=== PATIENT | female | born 1955 | race Caucasian/White ===

== ENCOUNTER 2016-12-03 15:46 | Inpatient (IN) | payer MEDICARE ==
[2016-12-03 16:40] LABS: VENOUS BEb -3.5 (+/- 2); VENOUS TCO2 23.4 MMOL/L (23-27)
[2016-12-03 16:45] LABS: AUTOMATED BASOPHIL 0.3 % (0-2); AUTOMATED EOSINOPHIL 0.1 % (0-5); AUTOMATED MONOCYTE 10.9 % (3-10); AUTOMATED NEUTROPHIL 78.7 % (45-76); MPV 8.7 fL (7.4-10.4)
[2016-12-03 16:51] LABS: PT-INR 1.1
[2016-12-03 16:53] LABS: BLOOD UREA NITROGEN 23 MG/DL (7-17); CALCIUM 8.5 MG/DL (8.4-10.2); CALCULATED OSMOLALITY 251 MOs/Kg (270-290); CHLORIDE 94 mEq/L (98-107); GLUCOSE 96 MG/DL (70-99); SODIUM LEVEL 128 mEq/L (137-146)
[2016-12-03] MEDS ORDERED: NS 1,000 ML IV ONE ×4 (17:07→23:04)
--- NOTE | 2016-12-03 17:12 | EDPRACDOC ---
- General Information Chief Complaint: Dyspnea/Resp distress Stated Complaint: SHOB/CHEST PAIN Time Seen by Provider: 12/03/16 17:10 Information Source: Patient Mode Of Arrival: Car Home Medications: Home Medications Acetaminophen [Tylenol] 975 mg PO DAILY 12/03/16 Alprazolam [Xanax] 0.5 mg PO TID 12/03/16 Amitriptyline HCl 50 mg PO DAILY 12/03/16 Aspirin 325 mg PO DAILY 12/03/16 Baclofen 20 mg PO Q8H 12/03/16 Doxycycline Hyclate [Morgidox] 100 mg PO .BID X 7D 12/03/16 Fentanyl [Duragesic] 75 mcg TOP Q48H 12/03/16 Fluorometholone [Fml Forte] 1 drop OU BID 12/03/16 Fluoxetine HCl [Prozac] 20 mg PO QHS 12/03/16 Gabapentin 800 mg PO Q6H 12/03/16 Levothyroxine [Synthroid, Levoxyl] 100 mcg PO DAILY 12/03/16 Meloxicam [Mobic] 7.5 mg PO DAILY 12/03/16 Mirtazapine [Remeron] 45 mg PO HS 12/03/16 Nebivolol HCl [Bystolic] 2.5 mg PO DAILY 12/03/16 Prednisone [Sterapred Ds] 10 mg PO DIR 12/03/16 Roflumilast [Daliresp] 500 mcg PO DAILY 12/03/16 Solifenacin Succinate [Vesicare] 5 mg PO DAILY 12/03/16 Trimethoprim 100 mg PO HS 12/03/16 Allergies/Adverse Reactions: Allergies Allergy/AdvReac Type Severity Reaction Status Date / Time oxycodone [From OxyContin] Allergy Confusion Verified 12/03/16 15:59 - History of Present Illness HPI: Cough, fever to 101 today with SOB, had outpatient CXR showing R sided PNA, sent to the ED. Relevant History: Denies: Recent travel Cough: Reports: Non-productive. Denies: Bloody SOB Worsens with: Reports: Nothing SOB Improves with: Reports: Nothing Associated Signs and symptoms: Reports: Cough, Fever. Denies: Sore Throat, Vomiting ED Past Medical History - History Reviewed Yes Nurses notes reviewed and agree except as marked - Patient Medical History Cardiac History: Reports: Hypertension Psychological History: Denies: Depression - Social Medical History Smoking Status: Former smoker EDM Review of Systems - Review of Systems ROS Negative Except as Marked: Yes All systems reviewed and were negative except as marked - Physical Exam Constitutional: Alert (Awake), Other (dyspneic) Oriented to: Time, Person, Place Last recorded Vital Signs: Last Vital Signs Temp 98.4 F 12/03/16 16:30 Pulse 122 H 12/03/16 16:30 Resp 22 12/03/16 16:30 BP 114/67 12/03/16 16:30 Pulse Ox 90 L 12/03/16 16:30 Oxygen Pulse Oxygen Saturation 90 O2 Device Room Air Oxygen Flow Rate Fraction of Inspired Oxygen ( FIO2) - HEENT Head: Normal ( normocephalic) Eye Exam: Normal (PERRL, EOMI, Sclera white) Oropharynx: Membranes Dry Tympanic Membrane: Normal ENT EAC: Normal TMJ: Normal Neck: Normal (FROM, trachea at midline) - Respiratory/Cardiovascular Respiratory: Diminished Cardiovascular: Tachycardia - GI Auscultation: Normal (NABS) Palpation: Normal (Soft,No rebound or guarding, non distended) Tenderness: Non tender Moore's Sign: Negative - Musculoskeletal Extremities: Normal (Normal tone, Pulses 2+ No cyanosis or edema, FROM) - Integumentary Skin: Normal, Warm, Dry Lymphatics: Normal (no adenopathy) - Neurologic Memory Impaired: Normal Motor Function: Normal (Normal tone, Pulses 2+ No cyanosis or edema, FROM) Cranial Nerve: Normal (CN II-X11 intact sensation, strength 5/5) Cerebellar: Normal Mood Description: Normal Perception: Normal ED SOB MDM - Results Result Diagrams: 12/03/16 16:26 12/03/16 16:26 Results: WBC 3.7 xk/uL (3.8-10.8) L 12/03/16 16:26 RBC 3.59 xM/uL (4.20-5.40) L 12/03/16 16:26 Hgb 12.4 g/dL (12.0-16.0) 12/03/16 16:26 Hct 35.5 % (36-47) L 12/03/16 16:26 MCV 99 fL (81-99) 12/03/16 16:26 MCH 34.5 pg (27-32) H 12/03/16 16:26 MCHC 34.9 g/dl (33-36) 12/03/16 16:26 RDW 12.0 % (11.5-14.5) 12/03/16 16:26 Plt Count 154 xk/uL (130-400) 12/03/16 16:26 MPV 8.7 fL (7.4-10.4) 12/03/16 16:26 Neut % (Auto) 78.7 % (45-76) H 12/03/16 16:26 Lymph % (Auto) 10.0 % (17-44) L 12/03/16 16:26 [place] % (Auto) 10.9 % (3-10) H 12/03/16 16:26 Eos % (Auto) 0.1 % (0-5) 12/03/16 16:26 Baso % (Auto) 0.3 % (0-2) 12/03/16 16:26 Absolute Neuts (auto) 2.89 xk/uL (1.7-8.2) 12/03/16 16:26 Absolute Lymphs (auto) 0.37 xk/uL (0.65-4.75) L 12/03/16 16:26 PT 11.4 SEC (9.2-11.2) H 12/03/16 16:26 INR 1.1 12/03/16 16:26 VBG pH 7.34 pH UNITS (7.32-7.43) 12/03/16 16:26 Mixed VBG pCO2 41.0 mmHg (40-60) 12/03/16 16:26 Mixed VBG pO2 43.0 mmHg (30-55) 12/03/16 16:26 Mixed VBG HCO3 22.1 MMOL/L (22-27) 12/03/16 16:26 Mixed VBG Total CO2 23.4 MMOL/L (23-27) 12/03/16 16:26 Mixed VBG Base Excess -3.5 (+/- 2) L 12/03/16 16:26 Sodium 128 mEq/L (137-146) L 12/03/16 16:26 Potassium 3.0 mEq/L (3.5-5.1) L 12/03/16 16:26 Chloride 94 mEq/L (98-107) L 12/03/16 16:26 Carbon Dioxide 20 mMOL/L (22-33) L 12/03/16 16:26 Anion Gap 17 mEq/L (8-16) H 12/03/16 16:26 BUN 23 MG/DL (7-17) H 12/03/16 16:26 Creatinine 0.80 MG/DL (0.52-1.04) 12/03/16 16:26 Estimated GFR (MDRD) > 60 mL/min (>=60) 12/03/16 16:26 Glucose 96 MG/DL (70-99) 12/03/16 16:26 Calculated Osmolality 251 MOs/Kg (270-290) L 12/03/16 16:26 Lactic Acid 6.0 mEq/L (0.7-2.1) H* 12/03/16 16:26 Calcium 8.5 MG/DL (8.4-10.2) 12/03/16 16:26 Lab Results 12/03/16 12/03/16 12/03/16 16:26 16:26 16:26 WBC 3.7 L RBC 3.59 L Hgb 12.4 Hct 35.5 L MCV 99 MCH 34.5 H MCHC 34.9 RDW 12.0 Plt Count 154 MPV 8.7 Neut % (Auto) 78.7 H Lymph % (Auto) 10.0 L [place] % (Auto) 10.9 H Eos % (Auto) 0.1 Baso % (Auto) 0.3 Absolute Neuts (auto) 2.89 Absolute Lymphs (auto) 0.37 L PT 11.4 H INR 1.1 VBG pH 7.34 Mixed VBG pCO2 41.0 Mixed VBG pO2 43.0 Mixed VBG HCO3 22.1 Mixed VBG Total CO2 23.4 Mixed VBG Base Excess -3.5 L Sodium Potassium Chloride Carbon Dioxide Anion Gap BUN Creatinine Estimated GFR (MDRD) Glucose Calculated Osmolality Lactic Acid Calcium 12/03/16 12/03/16 16:26 16:26 WBC RBC Hgb Hct MCV MCH MCHC RDW Plt Count MPV Neut % (Auto) Lymph % (Auto) [place] % (Auto) Eos % (Auto) Baso % (Auto) Absolute Neuts (auto) Absolute Lymphs (auto) PT INR VBG pH Mixed VBG pCO2 Mixed VBG pO2 Mixed VBG HCO3 Mixed VBG Total CO2 Mixed VBG Base Excess Sodium 128 L Potassium 3.0 L Chloride 94 L Carbon Dioxide 20 L Anion Gap 17 H BUN 23 H Creatinine 0.80 Estimated GFR (MDRD) > 60 Glucose 96 Calculated Osmolality 251 L Lactic Acid 6.0 H* Calcium 8.5 - Departure Final Diagnosis: Pneumonia Referrals: Erika Malik MD [Primary Care Provider] - One Week Prescriptions: No Action Roflumilast [Daliresp] 500 mcg PO DAILY Gabapentin 800 mg PO Q6H Aspirin 325 mg PO DAILY Meloxicam [Mobic] 7.5 mg PO DAILY Baclofen 20 mg PO Q8H Levothyroxine [Synthroid, Levoxyl] 100 mcg PO DAILY Amitriptyline HCl 50 mg PO DAILY Solifenacin Succinate [Vesicare] 5 mg PO DAILY Nebivolol HCl [Bystolic] 2.5 mg PO DAILY Fluoxetine HCl [Prozac] 20 mg PO QHS Fluorometholone [Fml Forte] 1 drop OU BID Mirtazapine [Remeron] 45 mg PO HS Fentanyl [Duragesic] 75 mcg TOP Q48H Alprazolam [Xanax] 0.5 mg PO TID Trimethoprim 100 mg PO HS Prednisone [Sterapred Ds] 10 mg PO DIR Doxycycline Hyclate [Morgidox] 100 mg PO .BID X 7D Acetaminophen [Tylenol] 975 mg PO DAILY Decision to Admit Time: 18:13 (d/w Dr Lewis, will admit) Decision to admit date: 12/03/16 Decision to admit: from ED
[2016-12-03 17:15] LABS: LEUKOCYTES/URINE NEG (NEGATIVE); NITRITE/URINE NEG (NEGATIVE); RBC/URINE 0-2 (0-5); URINE OCCULT BLOOD NEG (NEG/TRACE); WBC/URINE 0-2 (0-5)
[2016-12-03] MEDS: NS 1,000 ML IV ONE ×2 (17:25→17:53)
[2016-12-03] MEDS ORDERED: POTASSIUM CHLORIDE 20 MEQ TAB PO ONE (17:45)
[2016-12-03] MEDS ORDERED: ONDANSETRON HCL 4 MG/2 ML VIAL IV ONE ×2 (17:46→18:29)
[2016-12-03] MEDS ORDERED: FENTANYL 100 MCG/2 ML VIAL IV ONE (17:46)
[2016-12-03] MEDS ORDERED: Levofloxacin 750 mg/150 ml D5W 750 MG/150 ML RTU IV ONE (18:00)
--- NOTE | 2016-12-03 18:43 | HISTPHYS ---
- Chief Complaint shortness of breath - History of Present Illness PRIMARY CARE PROVIDER: Dr. Erika Malik HPI: The patient is a 61 yo woman who presents with acute shortness of breath and right sided chest pain. It started this morning with shortness of breath and the chest pain. She went to her doctor's office and was evaluated, then sent to have a chest x-ray. Chest x-ray done as an outpatient at [facility] showed a right sided pneumonia, so patient presented to the emergency department. Onset: this morning. Duration: constant. Location: chest pain is on right side of chest. Radiation: to back on right side of thorax. Character: 10/10 at times. As if someone is pressing on her chest. Alleviated by : Nothing. Exacerbated by: taking a deep breath and exertion. Associated Symptoms: Coughing that is non-productive. Not sure if she had wheezing. Shortness of breath, worsening. Chest pain but no palpitations. Fever at home. Not sure if she had chills. Diaphoresis today. Severe fatigue. Headache that is all over her head (reports she gets headaches when she has a respiratory infection). Does not feel well. Nausea. Has chronic back pain but pain is currently worse; is in right thorax and lower spine. Treatments: none at home except usual medications. - Medical History Cardiac History: Reports: Hypertension Respiratory History: Reports: COPD (rarely uses inhalers. Not on O2 at home.) GI/ History: Reports: Urinary Tract Infection (recurrent UTIs, on trimethoprim for prevention) Musculoskeletal History: Reports: Arthritis (and chronic back pain.) Psychological History: Denies: Depression Patient report she has had pain in area where the spinal stimulator was, and that she has episodes of pneumonia on right because of the stimulator surgery, which she states caused a pocket of exudate on the right lung. - Surgical History Reports: Other (Had a stimulator in spine for pain, was removed.) - Medictions/Allergies Allergies oxycodone [From OxyContin] Allergy (Verified 12/03/16 15:59) Confusion Current Medication List: Reviewed Home Medications Acetaminophen [Tylenol] 975 mg PO DAILY 12/03/16 Alprazolam [Xanax] 0.5 mg PO TID 12/03/16 Amitriptyline HCl 50 mg PO DAILY 12/03/16 Aspirin 325 mg PO DAILY 12/03/16 Baclofen 20 mg PO Q8H 12/03/16 Doxycycline Hyclate [Morgidox] 100 mg PO .BID X 7D 12/03/16 Fentanyl [Duragesic] 75 mcg TOP Q48H 12/03/16 Fluorometholone [Fml Forte] 1 drop OU BID 12/03/16 Fluoxetine HCl [Prozac] 20 mg PO QHS 12/03/16 Gabapentin 800 mg PO Q6H 12/03/16 Levothyroxine [Synthroid, Levoxyl] 100 mcg PO DAILY 12/03/16 Meloxicam [Mobic] 7.5 mg PO DAILY 12/03/16 Mirtazapine [Remeron] 45 mg PO HS 12/03/16 Nebivolol HCl [Bystolic] 2.5 mg PO DAILY 12/03/16 Prednisone [Sterapred Ds] 10 mg PO DIR 12/03/16 Roflumilast [Daliresp] 500 mcg PO DAILY 12/03/16 Solifenacin Succinate [Vesicare] 5 mg PO DAILY 12/03/16 Trimethoprim 100 mg PO HS 12/03/16 - Family History Reports: Hypertension (Father), Cancer (Mother), Cardiac Disorders (Father) - Social History Smoking Status: Former smoker Social History: Reports: Alcohol Use. Denies: Substance Use Disorder Regarding alcohol: Patient reports she drinks alcohol but not daily. She usually drinks gin that she pours in orange juice. She reports she drinks usually just one per day when she does drink. - Review of Systems GENERAL: Fever at home. Not sure if she had chills. Diaphoresis today. Positive for fatigue/malaise. HEENT: No ear pain or discharge. No nasal discharge or bleeding. No throat pain or swelling. No eye pain or eye redness. RESPIRATORY: Coughing that is non-productive. Not sure if she had wheezing. Shortness of breath, worsening. CARDIOVASCULAR: Chest pain but no palpitations. GI: Nausea. No abdominal pain, vomiting, diarrhea, constipation, or bloody stool. NEUROLOGICAL: Has headache but no focal weakness. INTEGUMENT: no rashes, itching, or lesions. LYMPHATIC SYSTEM: no lymph node swelling or pain. MUSCULOSKELETAL: Worsening back pain; otherwise, no new pain or joint swelling. GENITOURINARY: No dysuria or hematuria. ENDOCRINE: No polyuria or polydipsia. HEME: No chronic anemia, bleeding. Positive for easy bruising. - Physical Exam Vital Signs: Initial Vitals Temperature 98.6 F 12/03/16 15:54 Pulse Rate 127 H 12/03/16 15:54 Respiratory Rate 18 12/03/16 15:54 Blood Pressure 97/65 L 12/03/16 15:54 Pulse Oxygen Saturation 87 L 12/03/16 15:54 Weight: 59.3 kg Height: 5'5" BMI: 21.8 - Other Exam Other Exam Findings: GENERAL: Ill-appearing, well nourished, in acute distress. HEENT: Normocephalic, atraumatic; pupils equal and round. Nares patent, without discharge or bleeding. No oropharyngeal lesions or erythema. Mucous membranes are dry. NECK: is supple, no masses, trachea midline. RESPIRATORY: Clear to auscultation bilaterally. Chest wall movements are symmetric. Tachypnea and use of accessory muscles to breathe. Rhonchi on right. Decreased breath sounds bilaterally. CARDIOVASCULAR: Normal S1, S2. Murmur 2/6, systolic flow murmur. No rubs, or gallops. PMI non-displaced. Carotids: no carotid bruits. Tachycardia. DP pulses 2+ bilaterally. Cap refill slightly delayed at 4 seconds. GI: soft, nontender, non-distended, hypoactive bowel sounds. No hepatosplenomegaly. INTEGUMENT: Clean, dry, and intact. No rashes. No lesions. MUSCULOSKELETAL: Moving all extremities. No cyanosis. No clubbing. Edema: none bilaterally. NEUROLOGICAL: Cranial nerves 2-12 grossly intact. Motor 5/5 throughout. Reflexes : 2+ bilaterally. Babinski: toes downgoing bilaterally. Intact Finger to nose. Sensory grossly intact to light touch. Intact rapid alternating movements bilaterally. No pronator drift. PSYCHIATRIC: Fully oriented. Normal and appropriate affect. LYMPHATIC: Shotty cervical lymphadenopathy. No supraclavicular lymphadenopathy. - Lab Results Laboratory Results - last 24 hr 12/03/16 12/03/16 12/03/16 16:26 16:26 16:26 WBC 3.7 L RBC 3.59 L Hgb 12.4 Hct 35.5 L MCV 99 MCH 34.5 H MCHC 34.9 RDW 12.0 Plt Count 154 MPV 8.7 Neut % (Auto) 78.7 H Lymph % (Auto) 10.0 L [place] % (Auto) 10.9 H Eos % (Auto) 0.1 Baso % (Auto) 0.3 Absolute Neuts (auto) 2.89 Absolute Lymphs (auto) 0.37 L PT INR D-Dimer Quant (PE/DVT) Puncture Site pH pCO2 pO2 HCO3 Total CO2 Base Excess VBG pH Mixed VBG pCO2 Mixed VBG pO2 Mixed VBG HCO3 Mixed VBG Total CO2 Mixed VBG Base Excess FiO2 % Specimen Drawn By Sodium 128 L Potassium 3.0 L Chloride 94 L Carbon Dioxide 20 L Anion Gap 17 H BUN 23 H Creatinine 0.80 Estimated GFR (MDRD) > 60 Glucose 96 Calculated Osmolality 251 L Lactic Acid 6.0 H* Calcium 8.5 Magnesium Urine Color Urine Clarity Urine pH Ur Specific [place] Urine Protein Urine Glucose (UA) Urine Ketones Urine Occult Blood Urine Nitrite Urine Bilirubin Urine Urobilinogen Ur Leukocyte Esterase Urine RBC Urine WBC Ur Epithelial Cells Urine Bacteria Hyaline Casts Urine Mucus Urine Opiates Screen Ur Oxycodone Screen Urine Methadone Screen Ur Barbiturates Screen Ur Tricyclics Screen Ur Phencyclidine Scrn Ur Amphetamines Screen U Methamphetamines Scrn Urine MDMA Screen U Benzodiazepines Scrn Urine Cocaine Screen Ur THC Screen Plasma/Serum Ethyl Alc 12/03/16 12/03/16 12/03/16 16:26 16:26 16:26 WBC RBC Hgb Hct MCV MCH MCHC RDW Plt Count MPV Neut % (Auto) Lymph % (Auto) [place] % (Auto) Eos % (Auto) Baso % (Auto) Absolute Neuts (auto) Absolute Lymphs (auto) PT 11.4 H INR 1.1 D-Dimer Quant (PE/DVT) Puncture Site pH pCO2 pO2 HCO3 Total CO2 Base Excess VBG pH 7.34 Mixed VBG pCO2 41.0 Mixed VBG pO2 43.0 Mixed VBG HCO3 22.1 Mixed VBG Total CO2 23.4 Mixed VBG Base Excess -3.5 L FiO2 % Specimen Drawn By Sodium Potassium Chloride Carbon Dioxide Anion Gap BUN Creatinine Estimated GFR (MDRD) Glucose Calculated Osmolality Lactic Acid Calcium Magnesium Urine Color Urine Clarity Urine pH Ur Specific [place] Urine Protein Urine Glucose (UA) Urine Ketones Urine Occult Blood Urine Nitrite Urine Bilirubin Urine Urobilinogen Ur Leukocyte Esterase Urine RBC Urine WBC Ur Epithelial Cells Urine Bacteria Hyaline Casts Urine Mucus Urine Opiates Screen Ur Oxycodone Screen Urine Methadone Screen Ur Barbiturates Screen Ur Tricyclics Screen Ur Phencyclidine Scrn Ur Amphetamines Screen U Methamphetamines Scrn Urine MDMA Screen U Benzodiazepines Scrn Urine Cocaine Screen Ur THC Screen Plasma/Serum Ethyl Alc 12/03/16 12/03/16 12/03/16 16:50 16:50 20:55 WBC RBC Hgb Hct MCV MCH MCHC RDW Plt Count MPV Neut % (Auto) Lymph % (Auto) [place] % (Auto) Eos % (Auto) Baso % (Auto) Absolute Neuts (auto) Absolute Lymphs (auto) PT INR D-Dimer Quant (PE/DVT) Puncture Site pH pCO2 pO2 HCO3 Total CO2 Base Excess VBG pH Mixed VBG pCO2 Mixed VBG pO2 Mixed VBG HCO3 Mixed VBG Total CO2 Mixed VBG Base Excess FiO2 % Specimen Drawn By Sodium Potassium Chloride Carbon Dioxide Anion Gap BUN Creatinine Estimated GFR (MDRD) Glucose Calculated Osmolality Lactic Acid 3.0 H Calcium Magnesium Urine Color Pale yellow Urine Clarity Clear Urine pH 5.0 Ur Specific [place] 1.010 Urine Protein Neg Urine Glucose (UA) 3+ H Urine Ketones Neg Urine Occult Blood Neg Urine Nitrite Neg Urine Bilirubin Neg Urine Urobilinogen <2.0 Ur Leukocyte Esterase Neg Urine RBC 0-2 Urine WBC 0-2 Ur Epithelial Cells Occ Urine Bacteria Few Hyaline Casts 5-10 H Urine Mucus Occ Urine Opiates Screen Neg Ur Oxycodone Screen Neg Urine Methadone Screen Neg Ur Barbiturates Screen Neg Ur Tricyclics Screen *positive* H Ur Phencyclidine Scrn Neg Ur Amphetamines Screen Neg U Methamphetamines Scrn Neg Urine MDMA Screen Neg U Benzodiazepines Scrn *positive* H Urine Cocaine Screen Neg Ur THC Screen Neg Plasma/Serum Ethyl Alc 12/03/16 12/03/16 12/03/16 20:55 21:23 23:10 WBC RBC Hgb Hct MCV MCH MCHC RDW Plt Count MPV Neut % (Auto) Lymph % (Auto) [place] % (Auto) Eos % (Auto) Baso % (Auto) Absolute Neuts (auto) Absolute Lymphs (auto) PT INR D-Dimer Quant (PE/DVT) 646 H Puncture Site Right radial pH 7.440 pCO2 30.0 L pO2 49.0 L* HCO3 20.4 L Total CO2 21.3 L Base Excess -2.7 L VBG pH Mixed VBG pCO2 Mixed VBG pO2 Mixed VBG HCO3 Mixed VBG Total CO2 Mixed VBG Base Excess FiO2 % 3L Specimen Drawn By Rakma Sodium 135 L Potassium Chloride Carbon Dioxide Anion Gap BUN Creatinine Estimated GFR (MDRD) Glucose Calculated Osmolality Lactic Acid Calcium Magnesium 1.00 L Urine Color Urine Clarity Urine pH Ur Specific [place] Urine Protein Urine Glucose (UA) Urine Ketones Urine Occult Blood Urine Nitrite Urine Bilirubin Urine Urobilinogen Ur Leukocyte Esterase Urine RBC Urine WBC Ur Epithelial Cells Urine Bacteria Hyaline Casts Urine Mucus Urine Opiates Screen Ur Oxycodone Screen Urine Methadone Screen Ur Barbiturates Screen Ur Tricyclics Screen Ur Phencyclidine Scrn Ur Amphetamines Screen U Methamphetamines Scrn Urine MDMA Screen U Benzodiazepines Scrn Urine Cocaine Screen Ur THC Screen Plasma/Serum Ethyl Alc - Diagnostic Findings DIAGNOSTIC DATA: EK bpm. Sinus tachycardia. Nonspecific T wave abnormality. Minimal ST depression in 2, aVF, V3, and V4. Reviewed EKG personally. IMAGING: Chest x-ray, viewed personally: CLINICAL DATA: Productive cough and chest pain when coughing for several days. History of pneumonia and COPD. Fever today. EXAM: CHEST 2 VIEW COMPARISON: Radiographs 10/10/2015 and 04/16/2011. FINDINGS: The heart size and mediastinal contours are stable. There are diffuse airspace opacities throughout the right lung with associated fissural thickening. The left lung is clear. There is no significant pleural effusion. The bones appear unremarkable. IMPRESSION: Multifocal airspace opacities throughout the right lung suspicious for multi lobar pneumonia. Followup PA and lateral chest X-ray is recommended in 3-4 weeks following trial of antibiotic therapy to ensure resolution and exclude underlying malignancy. These results will be called to the ordering clinician or sales representative aircraft by the Radiology Department at the imaging location. - Assessment (1) Sepsis A41.9 - SEPSIS, UNSPECIFIED ORGANISM Acute Present on Admission: Yes Present on admission. Criteria: Pulse 126. White blood cells 3.7. Respiratory rate 24. Fever at home of 101. Lactic acid level is 6. Source: pneumonia. Plan: Sepsis order set. IV antibiotics. IV fluids to provide volume. Monitor for signs of volume depletion, monitor blood pressure carefully. If still hypotensive with IV fluids consider pressors. Close monitoring. Telemetry. IVF: initial IVF 30 mL/kg x 1, then 250 mL/hr x 1 L, then maintenance IVF. (2) Acute respiratory failure with hypoxia J96.01 - ACUTE RESPIRATORY FAILURE WITH HYPOXIA Acute Present on Admission: Yes Patient has dyspnea and is not improving. Obtained ABG on 3L and patient's PO2 is low. Plan: Place patient on oxygen by Venti Mask 50% and increase as needed. Monitor oxygen saturation levels and keep O2 sats greater than 92%. Check D-dimer and if elevated, consider CTA chest. (3) Bacterial pneumonia J15.9 - UNSPECIFIED BACTERIAL PNEUMONIA Acute Present on Admission: Yes Pneumonia. Severe. Requiring continuous oxygen support. Type: Community acquired pneumonia. Criteria for diagnosis: Chest x-ray suggestive of pneumonia, rhonchi on physical exam. Likely bacterial. Plan: Sputum culture has been ordered. Treat with IV ceftriaxone and IV azithromycin. Add IV Levaquin due to severity of illness. Monitor oxygen saturation levels. (4) COPD exacerbation J44.1 - CHRONIC OBSTRUCTIVE PULMONARY DISEASE W (ACUTE) EXACERBATION Acute Present on Admission: Yes COPD exacerbation, severe. Plan: Nebs of Duoneb q 6 hours scheduled and albuterol q 2 hours prn. Sputum culture ordered. IV ceftriaxone and IV azithromycin. IV methylprednisolone. Continuous oxygen support. Keep sats below 95% due to COPD. (5) Hypokalemia E87.6 - HYPOKALEMIA Acute Present on Admission: Yes Replace potassium with KCl. Check magnesium level and replace as needed. (6) Hyponatremia E87.1 - HYPO-OSMOLALITY AND HYPONATREMIA Acute Present on Admission: Yes Etiology unclear. Has low Na and low K. Does report drinking a lot of water, but has had poor PO intake. Plan: Will be receiving IV fluids due to sepsis. Monitor sodium levels. (7) Leukopenia D72.819 - DECREASED WHITE BLOOD CELL COUNT, UNSPECIFIED Acute Present on Admission: Yes Mildly decreased WBCs at 3.7. Patient reports no history of low WBCs. Only other measurement found in system was normal at greater than 5. Could be due to acute infection. Plan: Monitor CBC. Recheck as an outpatient also. (8) Chest pain R07.9 - CHEST PAIN, UNSPECIFIED Acute Present on Admission: Yes Right sided. Pleuritic. Most likely due to pneumonia. Will place on telemetry. (9) Magnesium deficiency E61.2 - MAGNESIUM DEFICIENCY Acute Present on Admission: Yes Magnesium level is severely low at 1. Plan: Magnesium 2g IV x 2. Recheck in AM. Will need outpatient rechecks of magnesium by her primary care physician after discharge. - Plan Alcohol use: patient reports drinking gin but not daily. Order EtOH level and vitamins. In summary, this patient is acutely and critically ill. The patient requires treatment of vital organ failure and measures to prevent further life- threatening deterioration of condition. I have spent 70 min in the critical care of this patient. Case Care Discussed with: Patient, Nursing Staff Total Time: 70 min Critical Care: Yes Code: 291 - Focused CV Perfusion Exam Date exam occurred: 12/03/16 Time of Exam: 21:00 Vital Signs: Last Vital Signs Temp 98.4 F 12/03/16 16:30 Pulse 117 12/03/16 18:52 Resp 24 12/03/16 18:52 BP 121/82 12/03/16 18:52 Pulse Ox 90 L 12/03/16 18:52 Respiratory: Respiratory distress, Decreased breath sounds, Accessory muscle use , Rhonchi. negative: Crackles Cardiovascular/Chest: Normal (Normal S1 and S2), Tachycardia, Systolic murmur (2 /6 ) Capillary Refill: Greater than 3 seconds (4 seconds) Peripheral pulses: Full: Radial (R), Radial (L), Dorsalis pedis (R), Dorsalis pedis (L), Posterior tibialis (R), Posterior tibialis (L) Skin Color: Unremarkable. negative: Mottled, Cyanotic Skin Turgor: <3 Seconds
[2016-12-03] MEDS ORDERED: FLUOROMETHOLONE OU SCH (21:00)
[2016-12-03] MEDS ORDERED: FLUOXETINE 10 MG CAP PO SCH (21:00)
[2016-12-03] MEDS ORDERED: GABAPENTIN 800 MG TAB PO SCH (21:00)
[2016-12-03] MEDS ORDERED: BACLOFEN 20 MG PO SCH (21:00)
[2016-12-03] MEDS ORDERED: MIRTAZAPINE 45 MG PO SCH (21:00)
[2016-12-03] MEDS ORDERED: BISACODYL 5 MG TAB PO PRN (21:03)
[2016-12-03] MEDS ORDERED: GUAIFEN 100 MG-DEXTROMETH 10 MG PER 5 ML PO PRN (21:03)
[2016-12-03] MEDS ORDERED: BENZONATATE 100 MG PERLES PO PRN (21:03)
[2016-12-03] MEDS ORDERED: PROMETHAZINE 25 MG/ML VIAL IV PRN (21:03)
[2016-12-03] MEDS ORDERED: SIMETHICONE 80 MG TAB PO PRN (21:03)
[2016-12-03] MEDS ORDERED: Docusate Sodium 100 MG CAP PO PRN (21:03)
[2016-12-03] MEDS ORDERED: ONDANSETRON HCL 4 MG/2 ML VIAL IV PRN (21:03)
[2016-12-03] MEDS ORDERED: SENNA CONCENTRATE TAB PO PRN (21:03)
[2016-12-03] MEDS ORDERED: ALBUTEROL 0.083% 3 ML NEB NEB PRN (21:08)
[2016-12-03 21:27] LABS: ALLEN'S TEST PASS; BEb -2.7 (+/- 2); TCO2 21.3 MMOL/L (23-27)
[2016-12-03 21:29] LABS: ABG Draw Site Right Radial
[2016-12-03] MEDS ORDERED: Pharmacy Order Set Alert SCH (22:00)
[2016-12-03] MEDS ORDERED: Vaccine Screening Complete SCH (22:00)
[2016-12-03] MEDS: ALPRAZOLAM 0.5 MG TAB PO SCH (22:03)
[2016-12-03 22:21] LABS: ETOH-MGDL < 10 mg/dL
[2016-12-03] MEDS: CEFTRIAXONE 1 GM in D5W 100 ML IV SCH (22:23)
[2016-12-03] MEDS: FLUOXETINE 20 MG CAP PO SCH (22:26)
[2016-12-03] MEDS: MIRTAZAPINE 15 MG TAB PO SCH (22:26)
[2016-12-03] MEDS: BACLOFEN 10 MG TAB PO SCH (22:26)
[2016-12-03] MEDS: MELOXICAM 7.5 MG TAB PO SCH (22:27)
[2016-12-03] MEDS: METHYLPREDNISOLONE 125 MG/2 ML VIAL IV SCH (22:27)
[2016-12-03] MEDS ORDERED: NITROGLYCERINE 0.4 MG TAB SL PRN (22:27)
[2016-12-03] MEDS ORDERED: ASPIRIN (CHEWABLE) 81 MG TAB PO ONE (22:27)
[2016-12-03] MEDS: ENOXAPARIN 40 MG/0.4 ML PFS SQ SCH (22:27)
[2016-12-03] MEDS: AZITHROMYCIN 500 MG in D5W 250 ML IV SCH (23:07)
[2016-12-03] MEDS: Magnesium Sulfate 2 gm/D5W 2 GM/50 ML RTU IV SCH (23:46)
[2016-12-03 23:50] LABS: ALL NEG? NO
[2016-12-04 00:05] LABS: MDMA* NEG (NEGATIVE); METHAMPHETAMINES NEG (NEGATIVE); OXYCODONE NEG (NEGATIVE)
[2016-12-04] MEDS ORDERED: Pharmacy Review for Metformin - IV Contrast Given SCH (01:00)
[2016-12-04] MEDS: Albuterol/Ipratropium Neb 3 ML NEB NEB SCH ×5 (01:35→19:58)
[2016-12-04] MEDS: Magnesium Sulfate 2 gm/D5W 2 GM/50 ML RTU IV SCH (01:50)
--- NOTE | 2016-12-04 02:03 | DIRPT ---
CLINICAL DATA: Elevated D-dimer with hypoxia and right chest pain EXAM: CT ANGIOGRAPHY CHEST WITH CONTRAST TECHNIQUE: Multidetector CT imaging of the chest was performed using the standard protocol during bolus administration of intravenous contrast. Multiplanar CT image reconstructions and MIPs were obtained to evaluate the vascular anatomy. CONTRAST: 80 cc Isovue 370 intravenous COMPARISON: None. FINDINGS: THORACIC INLET/BODY WALL: No acute abnormality. MEDIASTINUM: Normal heart size. No pericardial effusion. Aortic atherosclerosis without aneurysm or dissection. There is intermittent respiratory motion; no identified pulmonary embolism. No adenopathy. LUNG WINDOWS: There is patchy airspace opacity in the right lung with superimposed bandlike atelectasis and volume loss. Central airways are patent. No edema, effusion, or pneumothorax. UPPER ABDOMEN: Cholelithiasis. Prominent splenic size, but stable where seen since [address] OSSEOUS: Chronic T6 and T7 superior endplate deformities no acute osseous finding. Review of the MIP images confirms the above findings. IMPRESSION: 1. Pneumonia and atelectasis on the right. 2. Negative for pulmonary embolism. 3. Cholelithiasis. Electronically Signed By: Easton Smith M.D. On: 12/04/2016 02:01
[2016-12-04] MEDS: NS 1,000 ML IV SCH ×4 (03:39→18:32)
[2016-12-04] MEDS: GABAPENTIN 800 MG TAB PO SCH ×4 (05:27→23:56)
[2016-12-04] MEDS: BACLOFEN 10 MG TAB PO SCH ×3 (05:27→21:47)
[2016-12-04] MEDS: METHYLPREDNISOLONE 125 MG/2 ML VIAL IV SCH ×3 (05:27→23:54)
[2016-12-04] MEDS: LEVOTHYROXINE 100 MCG (0.1 MG) TAB PO SCH (05:27)
[2016-12-04] MEDS: ALPRAZOLAM 0.5 MG TAB PO SCH ×3 (05:27→21:47)
[2016-12-04 06:45] LABS: MPV 8.9 fL (7.4-10.4)
[2016-12-04 06:54] LABS: BLOOD UREA NITROGEN 13 MG/DL (7-17); CALCIUM 8.4 MG/DL (8.4-10.2); CALCULATED OSMOLALITY 271 MOs/Kg (270-290); CHLORIDE 110 mEq/L (98-107); GLUCOSE 128 mg/dL (70-99); SODIUM LEVEL 140 mEq/L (137-146)
[2016-12-04] MEDS ORDERED: PNEUMOCOCCAL 0.5 ML VIAL IM ONE (08:00)
[2016-12-04] MEDS: MELOXICAM 7.5 MG TAB PO SCH ×2 (08:26→21:47)
[2016-12-04] MEDS: ASPIRIN 325 MG TAB PO SCH (08:26)
[2016-12-04] MEDS: TOLTERODINE 4 MG LA CAP PO SCH (08:26)
[2016-12-04] MEDS: AMITRIPTYLINE 50 MG TAB PO SCH (08:26)
[2016-12-04] MEDS: ROFLUMILAST 500 MCG TAB PO SCH (08:27)
[2016-12-04] MEDS: TRAMADOL HCL 50 MG TAB PO PRN (08:27)
[2016-12-04] MEDS: NEBIVOLOL HCL 10 MG TAB PO SCH (08:27)
[2016-12-04] MEDS: FENTANYL 75 MCG PATCH TOP SCH (08:45)
[2016-12-04] MEDS ORDERED: SOLIFENACIN PO SCH (09:00)
[2016-12-04] MEDS ORDERED: NEBIVOLOL HCL 2.5 MG PO SCH (09:00)
--- NOTE | 2016-12-04 09:26 | GENMEDPROG ---
Chief Complaint: less sob c/o cough. Patient also describes sinus pain and admits to sinus drainagein the back of throat. Notes Reviewed: Yes: Events from last night noted and discussed with Clinical Staff Current Medication List: Reviewed Currently: Reports: Cough, SOB, Sputum, Tobacco Use/Hx DVT Prophylaxis: Yes - Physical Examination Vital Signs and I&O: Last Vital Signs Temp 98.3 F 12/04/16 07:41 Pulse 105 12/04/16 07:41 Resp 22 12/04/16 07:41 BP 128/72 12/04/16 07:41 Pulse Ox 95 12/04/16 07:41 Oxygen Pulse Oxygen Saturation 95 O2 Device Venturi Mask Oxygen Flow Rate 3 Fraction of Inspired Oxygen ( 50 FIO2) Intake & Output 12/01/16 12/02/16 12/03/16 12/04/16 23:59 23:59 23:59 23:59 Intake Total 3100 2051 Output Total 1200 2500 Balance 1900 -449 Patient's weight 59.33 kg 57.334 kg General: Alert, Oriented x3, No acute distress, Well appearing, Well nourished HEENT: Normal (Normocephalic, atraumatic;EOMI.Sclera white, Nares patent, without discharge or bleeding. No oropharyngeal lesions or erythema. Mucous membranes are dry.) Neck: Non-tender, Full range of motion, Normal Trachea alignment, Normal inspection (No cervical lymphadenopathy. No supraclavicular lymphadenopathy.), No Masses palpable, Supple Lymphatics: Normal (no adenopathy) Respiratory: Diminished Cardiovascular: Regular rate and rhythm (No bradycardia or tachycardia), Normal S1, No Gallops,Rubs/Murmurs, Normal S2, Good Pedal Pulses (DP pulses 2+ bilaterally) GI: Normal bowel sounds (normal active sounds), Soft (non-distended), Non tender , No hepatospenomegaly, No masses Extremities/Musculoskeletal: Normal pulses (DP pulses 2+ bilaterally) Skin: Warm,Dry and Intact, No rashes, No significant lesion Neurological: Strength at 5/5 X4 ext (Motor 5/5 throughout.), Normal tone, Cranial nerves 3-12 NL ( 2-12 grossly intact.) Psych/Mental Status: Appropriate, Normal Affect Lab/DI/Studies Reviewed: 12/04/16 06:00 12/04/16 06:00 Laboratory Results - last 24 hr 12/03/16 12/03/16 12/03/16 16:26 16:26 16:26 WBC 3.7 L RBC 3.59 L Hgb 12.4 Hct 35.5 L MCV 99 MCH 34.5 H MCHC 34.9 RDW 12.0 Plt Count 154 MPV 8.7 Neut % (Auto) 78.7 H Lymph % (Auto) 10.0 L Adams % (Auto) 10.9 H Eos % (Auto) 0.1 Baso % (Auto) 0.3 Absolute Neuts (auto) 2.89 Absolute Lymphs (auto) 0.37 L PT INR D-Dimer Quant (PE/DVT) Puncture Site pH pCO2 pO2 HCO3 Total CO2 Base Excess VBG pH Mixed VBG pCO2 Mixed VBG pO2 Mixed VBG HCO3 Mixed VBG Total CO2 Mixed VBG Base Excess FiO2 % Specimen Drawn By Sodium 128 L Potassium 3.0 L Chloride 94 L Carbon Dioxide 20 L Anion Gap 17 H BUN 23 H Creatinine 0.80 Estimated GFR (MDRD) > 60 Glucose 96 Calculated Osmolality 251 L Lactic Acid 6.0 H* Calcium 8.5 Magnesium Urine Color Urine Clarity Urine pH Ur Specific [place] Urine Protein Urine Glucose (UA) Urine Ketones Urine Occult Blood Urine Nitrite Urine Bilirubin Urine Urobilinogen Ur Leukocyte Esterase Urine RBC Urine WBC Ur Epithelial Cells Urine Bacteria Hyaline Casts Urine Mucus Urine Opiates Screen Ur Oxycodone Screen Urine Methadone Screen Ur Barbiturates Screen Ur Tricyclics Screen Ur Phencyclidine Scrn Ur Amphetamines Screen U Methamphetamines Scrn Urine MDMA Screen U Benzodiazepines Scrn Urine Cocaine Screen Ur THC Screen Plasma/Serum Ethyl Alc 12/03/16 12/03/16 12/03/16 16:26 16:26 16:26 WBC RBC Hgb Hct MCV MCH MCHC RDW Plt Count MPV Neut % (Auto) Lymph % (Auto) Adams % (Auto) Eos % (Auto) Baso % (Auto) Absolute Neuts (auto) Absolute Lymphs (auto) PT 11.4 H INR 1.1 D-Dimer Quant (PE/DVT) Puncture Site pH pCO2 pO2 HCO3 Total CO2 Base Excess VBG pH 7.34 Mixed VBG pCO2 41.0 Mixed VBG pO2 43.0 Mixed VBG HCO3 22.1 Mixed VBG Total CO2 23.4 Mixed VBG Base Excess -3.5 L FiO2 % Specimen Drawn By Sodium Potassium Chloride Carbon Dioxide Anion Gap BUN Creatinine Estimated GFR (MDRD) Glucose Calculated Osmolality Lactic Acid Calcium Magnesium Urine Color Urine Clarity Urine pH Ur Specific [place] Urine Protein Urine Glucose (UA) Urine Ketones Urine Occult Blood Urine Nitrite Urine Bilirubin Urine Urobilinogen Ur Leukocyte Esterase Urine RBC Urine WBC Ur Epithelial Cells Urine Bacteria Hyaline Casts Urine Mucus Urine Opiates Screen Ur Oxycodone Screen Urine Methadone Screen Ur Barbiturates Screen Ur Tricyclics Screen Ur Phencyclidine Scrn Ur Amphetamines Screen U Methamphetamines Scrn Urine MDMA Screen U Benzodiazepines Scrn Urine Cocaine Screen Ur THC Screen Plasma/Serum Ethyl Alc 12/03/16 12/03/16 12/03/16 16:50 16:50 20:55 WBC RBC Hgb Hct MCV MCH MCHC RDW Plt Count MPV Neut % (Auto) Lymph % (Auto) Adams % (Auto) Eos % (Auto) Baso % (Auto) Absolute Neuts (auto) Absolute Lymphs (auto) PT INR D-Dimer Quant (PE/DVT) Puncture Site pH pCO2 pO2 HCO3 Total CO2 Base Excess VBG pH Mixed VBG pCO2 Mixed VBG pO2 Mixed VBG HCO3 Mixed VBG Total CO2 Mixed VBG Base Excess FiO2 % Specimen Drawn By Sodium Potassium Chloride Carbon Dioxide Anion Gap BUN Creatinine Estimated GFR (MDRD) Glucose Calculated Osmolality Lactic Acid 3.0 H Calcium Magnesium Urine Color Pale yellow Urine Clarity Clear Urine pH 5.0 Ur Specific [place] 1.010 Urine Protein Neg Urine Glucose (UA) 3+ H Urine Ketones Neg Urine Occult Blood Neg Urine Nitrite Neg Urine Bilirubin Neg Urine Urobilinogen <2.0 Ur Leukocyte Esterase Neg Urine RBC 0-2 Urine WBC 0-2 Ur Epithelial Cells Occ Urine Bacteria Few Hyaline Casts 5-10 H Urine Mucus Occ Urine Opiates Screen Neg Ur Oxycodone Screen Neg Urine Methadone Screen Neg Ur Barbiturates Screen Neg Ur Tricyclics Screen *positive* H Ur Phencyclidine Scrn Neg Ur Amphetamines Screen Neg U Methamphetamines Scrn Neg Urine MDMA Screen Neg U Benzodiazepines Scrn *positive* H Urine Cocaine Screen Neg Ur THC Screen Neg Plasma/Serum Ethyl Alc 12/03/16 12/03/16 12/03/16 20:55 21:23 23:10 WBC RBC Hgb Hct MCV MCH MCHC RDW Plt Count MPV Neut % (Auto) Lymph % (Auto) Adams % (Auto) Eos % (Auto) Baso % (Auto) Absolute Neuts (auto) Absolute Lymphs (auto) PT INR D-Dimer Quant (PE/DVT) 646 H Puncture Site Right radial pH 7.440 pCO2 30.0 L pO2 49.0 L* HCO3 20.4 L Total CO2 21.3 L Base Excess -2.7 L VBG pH Mixed VBG pCO2 Mixed VBG pO2 Mixed VBG HCO3 Mixed VBG Total CO2 Mixed VBG Base Excess FiO2 % 3 Specimen Drawn By Rakma Sodium Potassium Chloride Carbon Dioxide Anion Gap BUN Creatinine Estimated GFR (MDRD) Glucose Calculated Osmolality Lactic Acid Calcium Magnesium 1.00 L Urine Color Urine Clarity Urine pH Ur Specific [place] Urine Protein Urine Glucose (UA) Urine Ketones Urine Occult Blood Urine Nitrite Urine Bilirubin Urine Urobilinogen Ur Leukocyte Esterase Urine RBC Urine WBC Ur Epithelial Cells Urine Bacteria Hyaline Casts Urine Mucus Urine Opiates Screen Ur Oxycodone Screen Urine Methadone Screen Ur Barbiturates Screen Ur Tricyclics Screen Ur Phencyclidine Scrn Ur Amphetamines Screen U Methamphetamines Scrn Urine MDMA Screen U Benzodiazepines Scrn Urine Cocaine Screen Ur THC Screen Plasma/Serum Ethyl Alc 12/03/16 12/04/16 12/04/16 23:10 06:00 06:00 WBC 5.8 RBC 3.15 L Hgb 10.9 L D Hct 31.2 L MCV 99 MCH 34.6 H MCHC 34.9 RDW 11.8 Plt Count 125 L MPV 8.9 Neut % (Auto) Lymph % (Auto) Adams % (Auto) Eos % (Auto) Baso % (Auto) Absolute Neuts (auto) Absolute Lymphs (auto) PT INR D-Dimer Quant (PE/DVT) Puncture Site pH pCO2 pO2 HCO3 Total CO2 Base Excess VBG pH Mixed VBG pCO2 Mixed VBG pO2 Mixed VBG HCO3 Mixed VBG Total CO2 Mixed VBG Base Excess FiO2 % Specimen Drawn By Sodium 135 L D 140 Potassium 4.1 D Chloride 110 H Carbon Dioxide 23 Anion Gap 11 BUN 13 Creatinine 0.60 Estimated GFR (MDRD) > 60 Glucose 128 H Calculated Osmolality 271 Lactic Acid Calcium 8.4 Magnesium 2.70 H Urine Color Urine Clarity Urine pH Ur Specific [place] Urine Protein Urine Glucose (UA) Urine Ketones Urine Occult Blood Urine Nitrite Urine Bilirubin Urine Urobilinogen Ur Leukocyte Esterase Urine RBC Urine WBC Ur Epithelial Cells Urine Bacteria Hyaline Casts Urine Mucus Urine Opiates Screen Ur Oxycodone Screen Urine Methadone Screen Ur Barbiturates Screen Ur Tricyclics Screen Ur Phencyclidine Scrn Ur Amphetamines Screen U Methamphetamines Scrn Urine MDMA Screen U Benzodiazepines Scrn Urine Cocaine Screen Ur THC Screen Plasma/Serum Ethyl Alc - Assessment (1) Acute respiratory failure with hypoxia Acute J96.01 - ACUTE RESPIRATORY FAILURE WITH HYPOXIA Comment/Plan: Patient has dyspnea and is not improving. Obtained ABG on 3L and patient's PO2 is low. Place patient on oxygen by Venti Mask 45% and increase as needed. Monitor oxygen saturation levels and keep O2 sats greater than 92%. CT of chest failed to show any evidence of pulmonary embolus but does have right -sided pneumonia and cholelithiasis. (2) Bacterial pneumonia Acute J15.9 - UNSPECIFIED BACTERIAL PNEUMONIA Comment/Plan: Requiring continuous oxygen support. Right-sided pneumonia noted on CT of chest and still quite hypoxic. (3) COPD exacerbation Acute J44.1 - CHRONIC OBSTRUCTIVE PULMONARY DISEASE W (ACUTE) EXACERBATION Comment/Plan: COPD exacerbation, severe. Plan: Nebs of Duoneb q 6 hours scheduled and albuterol q 2 hours prn. Sputum culture ordered. IV ceftriaxone and IV azithromycin. IV methylprednisolone. Continuous oxygen support. Keep sats below 95% due to COPD. (4) Chest pain Acute R07.9 - CHEST PAIN, UNSPECIFIED Qualifiers: Chest pain type: pleurodynia Qualified Code(s): R07.81 - Pleurodynia Comment/Plan: Right sided. Pleuritic pain due to pneumonia on telemetry. Additional Notes: Due to the presence of and / or the risk of deterioration, my attendance to this patient required critical care time, including assessment/reassessment, documentation, ordering and interpreting ancillary studies, discussion with staff and consultants,patient and family, and excludes time spent on separately billable procedures. This individual is critically ill and in danger of dying. Case Care Discussed with: Patient, Nursing Staff, Resource Management Education/Counseling Given To: Patient Education/Counseling Given Regarding: Diagnosis, Treatment Total Time: cc time 43 min Critical Care: Yes Code: 291
[2016-12-04] MEDS: OXYMETAZOLINE 0.05% NASAL SPRAY NAS SCH ×2 (09:51→21:44)
[2016-12-04] MEDS: MORPHINE 2 MG/ML INJECTION IV PRN ×3 (10:36→21:47)
--- NOTE | 2016-12-04 10:40 | DIRPT ---
CLINICAL DATA: 61-year-old female with shortness of breath, sinusitis, pneumonia. Initial encounter. EXAM: CT PARANASAL SINUS LIMITED WITHOUT CONTRAST TECHNIQUE: Non-contiguous multidetector CT images of the paranasal sinuses were obtained in a single plane without contrast. COMPARISON: Paranasal sinus CT 09/06/2010 FINDINGS: Negative visualized noncontrast brain parenchyma. Visualized orbits and scalp soft tissues are within normal limits. Negative visualized noncontrast deep soft tissue spaces of face. Mastoids and tympanic cavities are clear. Incidental asymmetric left peach wrists apex pneumatization. The sphenoid sinuses are clear and hyperplastic. Minimal bilateral ethmoid sinus mucosal thickening. Frontal sinuses are clear. Maxillary sinuses are clear. Rightward nasal septal deviation, otherwise negative nasal cavity. No acute osseous abnormality identified. IMPRESSION: Negative paranasal sinuses aside from minimal ethmoid mucosal thickening. Electronically Signed By: Viktoriya Teixeira M.D. On: 12/04/2016 10:37
[2016-12-04] MEDS: PROBIOTIC BLEND TAB PO SCH ×2 (12:07→16:29)
[2016-12-04] MEDS: ACETAMINOPHEN 325 MG/TAB TABLET PO SCH ×2 (14:11→21:47)
--- NOTE | 2016-12-04 15:37 | CAPUEKG ---
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 Electronically Signed On 12-04-16 15:36:38 EST by Foster Orosco <[email or web address]> [id number]
[2016-12-04] MEDS: ENOXAPARIN 40 MG/0.4 ML PFS SQ SCH (16:29)
[2016-12-04] MEDS: MIRTAZAPINE 15 MG TAB PO SCH (21:47)
[2016-12-04] MEDS: FLUOXETINE 20 MG CAP PO SCH (21:47)
[2016-12-04] MEDS: CEFTRIAXONE 1 GM in D5W 100 ML IV SCH (21:52)
[2016-12-04] MEDS: AZITHROMYCIN 500 MG in D5W 250 ML IV SCH (23:56)
[2016-12-05] MEDS: Albuterol/Ipratropium Neb 3 ML NEB NEB SCH ×4 (01:30→19:04)
[2016-12-05] MEDS: MORPHINE 2 MG/ML INJECTION IV PRN ×5 (02:13→21:12)
[2016-12-05] MEDS: NS 1,000 ML IV SCH ×3 (02:27→16:14)
[2016-12-05] MEDS: GABAPENTIN 800 MG TAB PO SCH ×4 (05:14→22:41)
[2016-12-05] MEDS: ALPRAZOLAM 0.5 MG TAB PO SCH ×3 (05:15→21:09)
[2016-12-05] MEDS: METHYLPREDNISOLONE 125 MG/2 ML VIAL IV SCH ×2 (05:15→14:27)
[2016-12-05] MEDS: ACETAMINOPHEN 325 MG/TAB TABLET PO SCH ×3 (05:15→21:09)
[2016-12-05] MEDS: BACLOFEN 10 MG TAB PO SCH ×3 (05:15→21:09)
[2016-12-05] MEDS: LEVOTHYROXINE 100 MCG (0.1 MG) TAB PO SCH (05:15)
[2016-12-05 05:29] LABS: ALLEN'S TEST PASS; BEb -0.7 (+/- 2); TCO2 24.5 MMOL/L (23-27)
[2016-12-05 05:31] LABS: ABG Draw Site Left Radial
--- NOTE | 2016-12-05 07:12 | DIRPT ---
CLINICAL DATA: Respiratory failure EXAM: PORTABLE CHEST 1 VIEW COMPARISON: 12/03/2016 FINDINGS: Progression of infiltrate throughout the right lung. No effusion. Left lung is clear. No heart failure identified. IMPRESSION: Progression of extensive infiltrate throughout the right lung. Electronically Signed By: Ulisses Larios M.D. On: 12/05/2016 07:10
--- NOTE | 2016-12-05 08:01 | GENMEDPROG ---
Chief Complaint: chest pain sl better sob better Notes Reviewed: Yes: Events from last night noted and discussed with Clinical Staff Current Medication List: Reviewed Currently: Reports: Cough, SOB, Sputum, Tobacco Use/Hx (quit 2003) DVT Prophylaxis: Yes - Physical Examination Vital Signs and I&O: Last Vital Signs Temp 98.1 F 12/05/16 04:23 Pulse 82 12/05/16 07:29 Resp 18 12/05/16 07:29 BP 132/78 12/05/16 04:23 Pulse Ox 100 12/05/16 07:29 Oxygen Pulse Oxygen Saturation 100 O2 Device Venturi Mask Oxygen Flow Rate 10 Fraction of Inspired Oxygen ( 45 FIO2) Intake & Output 12/02/16 12/03/16 12/04/16 12/05/16 23:59 23:59 23:59 23:59 Intake Total 3100 3347 2425 Output Total 1200 4000 500 Balance 1900 -653 1925 Patient's weight 59.33 kg 57.334 kg 57.924 kg General: Alert, Oriented x3, No acute distress, Well appearing, Well nourished HEENT: Normal (Normocephalic, atraumatic;EOMI.Sclera white, Nares patent, without discharge or bleeding. No oropharyngeal lesions or erythema. Mucous membranes are dry.) Neck: Non-tender, Full range of motion, Normal Trachea alignment, Normal inspection (No cervical lymphadenopathy. No supraclavicular lymphadenopathy.), No Masses palpable, Supple Lymphatics: Normal (no adenopathy) Respiratory: Diminished. negative: Rales, Rhonchi, Wheezes Cardiovascular: Regular rate and rhythm (No bradycardia or tachycardia), Normal S1, No Gallops,Rubs/Murmurs, Normal S2, Good Pedal Pulses (DP pulses 2+ bilaterally) GI: Normal bowel sounds (normal active sounds), Soft (non-distended), Non tender , No hepatospenomegaly, No masses Extremities/Musculoskeletal: Normal pulses (DP pulses 2+ bilaterally) Skin: Warm,Dry and Intact, No rashes, No significant lesion Neurological: Strength at 5/5 X4 ext (Motor 5/5 throughout.), Normal tone, Cranial nerves 3-12 NL ( 2-12 grossly intact.) Psych/Mental Status: Appropriate, Normal Affect Lab/DI/Studies Reviewed: Laboratory Results - last 24 hr 12/05/16 05:20 Puncture Site Left radial pH 7.420 pCO2 36.0 pO2 110.0 H HCO3 23.4 Total CO2 24.5 Base Excess -0.7 FiO2 % Vm45% Specimen Drawn By Lamont 12/04/16 06:00 12/04/16 06:00 - Assessment (1) Bacterial pneumonia Acute J15.9 - UNSPECIFIED BACTERIAL PNEUMONIA Comment/Plan: Requiring continuous oxygen support. Right-sided pneumonia noted on CT of chest and still quite hypoxic. (2) Acute respiratory failure with hypoxia Acute J96.01 - ACUTE RESPIRATORY FAILURE WITH HYPOXIA Comment/Plan: Patient has dyspnea and is not improving. Obtained ABG on 3L and patient's PO2 is low. Place patient on oxygen by [place] and increase as needed. Monitor oxygen saturation levels and keep O2 sats greater than 92%. CT of chest failed to show any evidence of pulmonary embolus but does have right -sided pneumonia and cholelithiasis. (3) UTI (urinary tract infection) Acute N39.0 - URINARY TRACT INFECTION, SITE NOT SPECIFIED Qualifiers: Urinary tract infection type: acute cystitis Hematuria presence: without hematuria Qualified Code(s): N30.00 - Acute cystitis without hematuria Comment/Plan: Growing E coli in urine and awaiting sensitivities presently getting Rocephin intravenously. (4) COPD exacerbation Acute J44.1 - CHRONIC OBSTRUCTIVE PULMONARY DISEASE W (ACUTE) EXACERBATION Comment/Plan: COPD exacerbation, severe. Plan: Nebs of Duoneb q 6 hours scheduled and albuterol q 2 hours prn. Sputum culture ordered. IV ceftriaxone and IV azithromycin. IV methylprednisolone. Continuous oxygen support. Keep sats below 95% due to COPD. (5) Chest pain Acute R07.9 - CHEST PAIN, UNSPECIFIED Qualifiers: Chest pain type: pleurodynia Qualified Code(s): R07.81 - Pleurodynia Comment/Plan: Right sided. Pleuritic pain due to pneumonia on telemetry. (6) Cholelithiasis Acute K80.20 - CALCULUS OF GALLBLADDER W/O CHOLECYSTITIS W/O OBSTRUCTION Qualifiers: Cholelithiasis location: gallbladder Cholecystitis presence: without cholecystitis Biliary obstruction: without biliary obstruction Qualified Code(s): K80.20 - Calculus of gallbladder without cholecystitis without obstruction Case Care Discussed with: Patient, Nursing Staff, Resource Management Education/Counseling Given To: Patient Education/Counseling Given Regarding: Diagnosis, Treatment Total Time: 38 min Critical Care: No Code: 70568 (12+)
[2016-12-05] MEDS: ASPIRIN 325 MG TAB PO SCH (09:17)
[2016-12-05] MEDS: NEBIVOLOL HCL 10 MG TAB PO SCH (09:23)
[2016-12-05] MEDS: ROFLUMILAST 500 MCG TAB PO SCH (09:25)
[2016-12-05] MEDS: TOLTERODINE 4 MG LA CAP PO SCH (09:26)
[2016-12-05] MEDS: MELOXICAM 7.5 MG TAB PO SCH ×2 (09:28→21:08)
[2016-12-05] MEDS: AMITRIPTYLINE 50 MG TAB PO SCH (09:28)
[2016-12-05] MEDS: TRAMADOL HCL 50 MG TAB PO PRN ×2 (11:27→23:22)
[2016-12-05] MEDS: PROBIOTIC BLEND TAB PO SCH ×2 (12:30→17:20)
[2016-12-05] MEDS: ENOXAPARIN 40 MG/0.4 ML PFS SQ SCH (17:20)
--- NOTE | 2016-12-05 20:37 | PCM.PULM ---
- Physical Examination Vital Signs and I&O: Last Vital Signs Temp 98.5 F 12/05/16 20:07 Pulse 108 12/05/16 20:07 Resp 20 12/05/16 20:07 BP 141/78 12/05/16 20:07 Pulse Ox 96 12/05/16 20:07 Oxygen Pulse Oxygen Saturation 96 O2 Device Nasal Cannula Oxygen Flow Rate 2 Fraction of Inspired Oxygen ( 45 FIO2) Intake & Output 12/02/16 12/03/16 12/04/16 12/05/16 23:59 23:59 23:59 23:59 Intake Total 3100 3347 2905 Output Total 1200 4000 1400 Balance 1900 -653 1505 Patient's weight 59.33 kg 57.334 kg 57.924 kg Result Diagrams: 12/04/16 06:00 12/04/16 06:00 Labs (last 24 hours): Laboratory Results - last 24 hr 12/05/16 05:20 Puncture Site Left radial pH 7.420 pCO2 36.0 pO2 110.0 H HCO3 23.4 Total CO2 24.5 Base Excess -0.7 FiO2 % Vm45% Specimen Drawn By Lamont Plan / Addtional Notes: Would stop following patient at her request
[2016-12-05] MEDS: CEFTRIAXONE 1 GM in D5W 100 ML IV SCH (21:09)
[2016-12-05] MEDS: FLUOXETINE 20 MG CAP PO SCH (21:09)
[2016-12-05] MEDS: MIRTAZAPINE 15 MG TAB PO SCH (21:09)
--- NOTE | 2016-12-05 22:26 | HIMCONS ---
DATE OF CONSULT: HISTORY OF PRESENT ILLNESS: This patient is admitted with shortness of breath and right-sided chest pain. The patient is a 61-year-old lady who has not been feeling well for at least a week or so according to the patient. She is very nervous at the time of interview and it seems like she is not a very good historian. She was seen by her doctor's office and was sent to the emergency room from where she was admitted. She is not complaining of chest pain anymore at this time; however, she is complaining of coughing and is nonproductive cough, mostly dry. She has minimal shortness of breath, wheezing, and some nausea. She has significant back pain and had multiple issues including empyema in the past and complications with nerve stimulator. PAST MEDICAL HISTORY: Significant for hypertension, COPD, urinary tract infections, arthritis. SURGICAL HISTORY: Significant for stimulator placed in the supine for the pain, which was removed. ALLERGIES: THE PATIENT IS ALLERGIC TO OXYCODONE. MEDICATIONS: Medications in the chart are noted. FAMILY HISTORY: Significant for her mother having cancer and father having cardiac disorder and hypertension. SOCIAL HISTORY: The patient has been a smoker in the past. No history of alcohol or drug abuse. REVIEW OF SYSTEM: Detailed review of systems is negative except for as mentioned in the history of present illness. PHYSICAL EXAMINATION: VITAL SIGNS: Temperature 98.8 degrees Fahrenheit, pulse is 103, respiratory rate is 20, blood pressure 124/75, pulse ox is 98%. CHEST: Scattered rales bibasilar, no wheezing. HEART: S1, S2. Regular. No murmur. EXTREMITIES: No clubbing, cyanosis, or edema. ABDOMEN: Soft and nontender. Bowel sounds are present. Hepatosplenomegaly is absent. NEURO: Grossly nonfocal. The patient is moving all extremities. LABORATORY DATA: White count is 5.8, hemoglobin is 10.9, hematocrit is 31.2, platelets are 125, PT and INR within normal limits. Blood gas showed a pH of 7.44, pCO2 of 30, PO2 was 49 on room air. Sodium 140, potassium 4.1, chloride 110, CO2 is 23, BUN is 13, creatinine is 0.6, and glucose is 128. IMAGING REPORTS: Chest x-ray and CAT scans were seen personally. The patient seems to have multilobar right-sided infiltrates. IMPRESSION: 1. Sddia-cz-hdsrhth respiratory failure. 2. Chronic obstructive pulmonary disease with exacerbation with right multilobar pneumonia. 3. Multiple other medical issues. PLAN: The patient has been on Rocephin and Zithromax along with Solu-Medrol 60 mg IV q.8 hours. She has significant hypoxia on room air and therefore would be kept on oxygen I would repeat a chest x- ray and a blood gas in the morning. We would order nebulizers on this patient and checked for MRSA PCR as well. Continue other supportive care. Long-term prognosis guarded. We would follow the patient closely. Thank you much for the consultation. I will follow the patient with you. [id number]
[2016-12-05] MEDS: AZITHROMYCIN 500 MG in D5W 250 ML IV SCH (22:30)
[2016-12-05] MEDS: TEMAZEPAM 15 MG CAP PO PRN (22:40)
[2016-12-06] MEDS: Albuterol/Ipratropium Neb 3 ML NEB NEB SCH ×4 (01:16→19:22)
[2016-12-06] MEDS: TEMAZEPAM 15 MG CAP PO PRN ×3 (01:52→21:50)
[2016-12-06] MEDS: NS 1,000 ML IV SCH ×3 (01:55→15:28)
[2016-12-06] MEDS: METHYLPREDNISOLONE 40 MG/1 ML VIAL IV SCH ×2 (01:56→13:18)
[2016-12-06] MEDS: BACLOFEN 10 MG TAB PO SCH ×3 (04:38→20:16)
[2016-12-06] MEDS: LEVOTHYROXINE 100 MCG (0.1 MG) TAB PO SCH (04:38)
[2016-12-06] MEDS: GABAPENTIN 800 MG TAB PO SCH ×3 (04:38→17:20)
[2016-12-06] MEDS: ACETAMINOPHEN 325 MG/TAB TABLET PO SCH ×3 (04:39→20:15)
[2016-12-06] MEDS: ALPRAZOLAM 0.5 MG TAB PO SCH ×3 (04:39→20:22)
[2016-12-06 05:04] LABS: MPV 9.1 fL (7.4-10.4)
[2016-12-06 05:22] LABS: BLOOD UREA NITROGEN 15 MG/DL (7-17); CALCIUM 8.7 MG/DL (8.4-10.2); CALCULATED OSMOLALITY 280 MOs/Kg (270-290); CHLORIDE 115 mEq/L (98-107); GLUCOSE 127 mg/dL (70-99); SODIUM LEVEL 144 mEq/L (137-146)
[2016-12-06] MEDS: ASPIRIN 325 MG TAB PO SCH (08:10)
[2016-12-06] MEDS: ROFLUMILAST 500 MCG TAB PO SCH (08:10)
[2016-12-06] MEDS: NEBIVOLOL HCL 10 MG TAB PO SCH (08:11)
[2016-12-06] MEDS: MELOXICAM 7.5 MG TAB PO SCH ×2 (08:13→20:16)
[2016-12-06] MEDS: TOLTERODINE 4 MG LA CAP PO SCH (08:13)
[2016-12-06] MEDS: FENTANYL 75 MCG PATCH TOP SCH (08:13)
[2016-12-06] MEDS: AMITRIPTYLINE 50 MG TAB PO SCH (08:13)
--- NOTE | 2016-12-06 08:15 | GENMEDPROG ---
Chief Complaint: less sob r inf scapular chest pleuritic pain Notes Reviewed: Yes: Events from last night noted and discussed with Clinical Staff Current Medication List: Reviewed Currently: Reports: Cough, SOB, Sputum, Tobacco Use/Hx (quit 2003) DVT Prophylaxis: Yes - Physical Examination Vital Signs and I&O: Last Vital Signs Temp 98.2 F 12/06/16 04:19 Pulse 95 12/06/16 07:05 Resp 20 12/06/16 04:19 BP 157/98 12/06/16 04:19 Pulse Ox 94 12/06/16 07:25 Oxygen Pulse Oxygen Saturation 94 O2 Device Nasal Cannula Oxygen Flow Rate 1.5 Fraction of Inspired Oxygen ( 45 FIO2) Intake & Output 12/03/16 12/04/16 12/05/16 12/06/16 23:59 23:59 23:59 23:59 Intake Total 3100 3347 2905 Output Total 1200 4000 2000 400 Balance 1900 -653 905 -400 Patient's weight 59.33 kg 57.334 kg 57.924 kg 58.241 kg General: Alert, Oriented x3, No acute distress, Well appearing, Well nourished HEENT: Normal (Normocephalic, atraumatic;EOMI.Sclera white, Nares patent, without discharge or bleeding. No oropharyngeal lesions or erythema. Mucous membranes are dry.) Neck: Non-tender, Full range of motion, Normal Trachea alignment, Normal inspection (No cervical lymphadenopathy. No supraclavicular lymphadenopathy.), No Masses palpable, Supple Lymphatics: Normal (no adenopathy) Respiratory: Diminished. negative: Rales, Rhonchi, Wheezes Cardiovascular: Regular rate and rhythm (No bradycardia or tachycardia), Normal S1, No Gallops,Rubs/Murmurs, Normal S2, Good Pedal Pulses (DP pulses 2+ bilaterally) GI: Normal bowel sounds (normal active sounds), Soft (non-distended), Non tender , No hepatospenomegaly, No masses Extremities/Musculoskeletal: Normal pulses (DP pulses 2+ bilaterally) Skin: Warm,Dry and Intact, No rashes, No significant lesion Neurological: Strength at 5/5 X4 ext (Motor 5/5 throughout.), Normal tone, Cranial nerves 3-12 NL ( 2-12 grossly intact.) Psych/Mental Status: Appropriate, Normal Affect Lab/DI/Studies Reviewed: 12/06/16 04:20 12/06/16 04:20 Laboratory Results - last 24 hr 12/06/16 12/06/16 04:20 04:20 WBC 7.5 RBC 2.86 L Hgb 9.8 L D Hct 28.8 L MCV 101 H MCH 34.1 H MCHC 33.9 RDW 12.2 Plt Count 136 MPV 9.1 Sodium 144 Potassium 3.7 Chloride 115 H Carbon Dioxide 23 Anion Gap 10 BUN 15 Creatinine 0.50 L Estimated GFR (MDRD) > 60 Glucose 127 H Calculated Osmolality 280 Calcium 8.7 - Assessment (1) Bacterial pneumonia Acute J15.9 - UNSPECIFIED BACTERIAL PNEUMONIA Comment/Plan: Requiring continuous oxygen support. Right-sided pneumonia noted on CT of chest and still quite hypoxic. (2) UTI (urinary tract infection) Acute N39.0 - URINARY TRACT INFECTION, SITE NOT SPECIFIED Qualifiers: Urinary tract infection type: acute cystitis Hematuria presence: without hematuria Qualified Code(s): N30.00 - Acute cystitis without hematuria Comment/Plan: Growing E coli in urine and is sensitive to Rocephin. (3) COPD exacerbation Acute J44.1 - CHRONIC OBSTRUCTIVE PULMONARY DISEASE W (ACUTE) EXACERBATION Comment/Plan: COPD exacerbation Nebs of Duoneb q 6 hours scheduled and albuterol q 2 hours prn. Sputum culture is unrevealing but tolerating the IV ceftriaxone and IV azithromycin. IV methylprednisolone. Continuous oxygen support. Keep sats below 95% due to COPD. (4) Chest pain Acute R07.9 - CHEST PAIN, UNSPECIFIED Qualifiers: Chest pain type: pleurodynia Qualified Code(s): R07.81 - Pleurodynia Comment/Plan: Right sided. Pleuritic pain due to pneumonia on telemetry. (5) Cholelithiasis Acute K80.20 - CALCULUS OF GALLBLADDER W/O CHOLECYSTITIS W/O OBSTRUCTION Qualifiers: Cholelithiasis location: gallbladder Cholecystitis presence: without cholecystitis Biliary obstruction: without biliary obstruction Qualified Code(s): K80.20 - Calculus of gallbladder without cholecystitis without obstruction (6) Acute respiratory failure with hypoxia Acute J96.01 - ACUTE RESPIRATORY FAILURE WITH HYPOXIA Comment/Plan: Placed patient on oxygen by NC 1.5l/min and weaning as tolerated. Monitor oxygen saturation levels and keep O2 sats greater than 92%. Right- sided pneumonia appears to be improving slowly. Case Care Discussed with: Patient, Nursing Staff, Resource Management Education/Counseling Given To: Patient Education/Counseling Given Regarding: Diagnosis, Treatment Total Time: 39 min Critical Care: No Code: 96606 (12+)
[2016-12-06] MEDS: MORPHINE 2 MG/ML INJECTION IV PRN ×2 (08:33→19:13)
[2016-12-06] MEDS: PROBIOTIC BLEND TAB PO SCH ×2 (11:57→17:20)
[2016-12-06] MEDS: ENOXAPARIN 40 MG/0.4 ML PFS SQ SCH (17:20)
[2016-12-06] MEDS: FLUOXETINE 20 MG CAP PO SCH (20:15)
[2016-12-06] MEDS: MIRTAZAPINE 15 MG TAB PO SCH (20:15)
[2016-12-06] MEDS: CEFTRIAXONE 1 GM in D5W 100 ML IV SCH (20:16)
[2016-12-06] MEDS: TRAMADOL HCL 50 MG TAB PO PRN (20:22)
[2016-12-06] MEDS: AZITHROMYCIN 500 MG in D5W 250 ML IV SCH (21:50)
[2016-12-07] MEDS: Albuterol/Ipratropium Neb 3 ML NEB NEB SCH ×4 (01:30→19:28)
[2016-12-07] MEDS: MORPHINE 2 MG/ML INJECTION IV PRN ×2 (02:37→21:27)
[2016-12-07] MEDS: GABAPENTIN 800 MG TAB PO SCH ×5 (02:38→22:35)
[2016-12-07] MEDS: METHYLPREDNISOLONE 40 MG/1 ML VIAL IV SCH ×2 (02:39→13:56)
[2016-12-07] MEDS: NS 1,000 ML IV SCH ×3 (02:39→17:03)
[2016-12-07] MEDS: LORAZEPAM 2 MG/ML VIAL IV PRN ×3 (03:12→18:53)
[2016-12-07] MEDS: BACLOFEN 10 MG TAB PO SCH ×3 (05:52→21:26)
[2016-12-07] MEDS: LEVOTHYROXINE 100 MCG (0.1 MG) TAB PO SCH (05:53)
[2016-12-07] MEDS: ACETAMINOPHEN 325 MG/TAB TABLET PO SCH ×3 (05:53→21:25)
[2016-12-07] MEDS: ALPRAZOLAM 0.5 MG TAB PO SCH ×3 (05:59→21:26)
[2016-12-07 07:03] LABS: MPV 8.8 fL (7.4-10.4)
[2016-12-07 07:07] LABS: BLOOD UREA NITROGEN 14 MG/DL (7-17); CALCIUM 8.3 MG/DL (8.4-10.2); CALCULATED OSMOLALITY 272 MOs/Kg (270-290); CHLORIDE 111 mEq/L (98-107); GLUCOSE 103 mg/dL (70-99); SODIUM LEVEL 141 mEq/L (137-146)
--- NOTE | 2016-12-07 08:21 | GENMEDPROG ---
Chief Complaint: sob better burning in chest chronic recurrent diarrhea Notes Reviewed: Yes: Events from last night noted and discussed with Clinical Staff Current Medication List: Reviewed Currently: Reports: Cough, SOB, Sputum, Tobacco Use/Hx (quit 2003) DVT Prophylaxis: Yes - Physical Examination Vital Signs and I&O: Last Vital Signs Temp 98.7 F 12/07/16 05:02 Pulse 91 12/07/16 05:02 Resp 18 12/07/16 05:02 BP 170/91 12/07/16 05:02 Pulse Ox 93 12/07/16 08:00 Oxygen Pulse Oxygen Saturation 93 O2 Device Nasal Cannula Oxygen Flow Rate 2 Fraction of Inspired Oxygen ( 45 FIO2) Intake & Output 12/04/16 12/05/16 12/06/16 12/07/16 23:59 23:59 23:59 23:59 Intake Total 3347 2905 2059 1644 Output Total 4000 2000 2000 600 Balance -653 117 82 4911 Patient's weight 57.334 kg 57.924 kg 58.241 kg 58.173 kg General: Alert, Oriented x3, No acute distress, Well appearing, Well nourished HEENT: Normal (Normocephalic, atraumatic;EOMI.Sclera white, Nares patent, without discharge or bleeding. No oropharyngeal lesions or erythema. Mucous membranes are dry.) Neck: Non-tender, Full range of motion, Normal Trachea alignment, Normal inspection (No cervical lymphadenopathy. No supraclavicular lymphadenopathy.), No Masses palpable, Supple Lymphatics: Normal (no adenopathy) Respiratory: Diminished. negative: Rales, Rhonchi, Wheezes Cardiovascular: Regular rate and rhythm (No bradycardia or tachycardia), Normal S1, No Gallops,Rubs/Murmurs, Normal S2, Good Pedal Pulses (DP pulses 2+ bilaterally) GI: Normal bowel sounds (normal active sounds), Soft (non-distended), Non tender , No hepatospenomegaly, No masses Extremities/Musculoskeletal: Normal pulses (DP pulses 2+ bilaterally) Skin: Warm,Dry and Intact, No rashes, No significant lesion Neurological: Strength at 5/5 X4 ext (Motor 5/5 throughout.), Normal tone, Cranial nerves 3-12 NL ( 2-12 grossly intact.) Psych/Mental Status: Appropriate, Normal Affect Lab/DI/Studies Reviewed: 12/07/16 06:25 12/07/16 06:25 Laboratory Results - last 24 hr 12/07/16 12/07/16 06:25 06:25 WBC 9.0 RBC 2.94 L Hgb 10.0 L Hct 29.4 L MCV 100 H MCH 34.2 H MCHC 34.1 RDW 11.9 Plt Count 139 MPV 8.8 Sodium 141 Potassium 3.4 L Chloride 111 H Carbon Dioxide 25 Anion Gap 8 BUN 14 Creatinine 0.60 Estimated GFR (MDRD) > 60 Glucose 103 H Calculated Osmolality 272 Calcium 8.3 L - Assessment (1) Bacterial pneumonia Acute J15.9 - UNSPECIFIED BACTERIAL PNEUMONIA Comment/Plan: Requiring continuous oxygen support. Right-sided pneumonia noted on CT of chest and still quite hypoxic. Obtain follow-up chest x-ray tomorrow morning. (2) UTI (urinary tract infection) Acute N39.0 - URINARY TRACT INFECTION, SITE NOT SPECIFIED Qualifiers: Urinary tract infection type: acute cystitis Hematuria presence: without hematuria Qualified Code(s): N30.00 - Acute cystitis without hematuria Comment/Plan: Growing E coli in urine and is sensitive to Rocephin. (3) Chest pain Acute R07.9 - CHEST PAIN, UNSPECIFIED Qualifiers: Chest pain type: pleurodynia Qualified Code(s): R07.81 - Pleurodynia Comment/Plan: Right sided. Pleuritic pain due to pneumonia on telemetry. (4) Cholelithiasis Acute K80.20 - CALCULUS OF GALLBLADDER W/O CHOLECYSTITIS W/O OBSTRUCTION Qualifiers: Cholelithiasis location: gallbladder Cholecystitis presence: without cholecystitis Biliary obstruction: without biliary obstruction Qualified Code(s): K80.20 - Calculus of gallbladder without cholecystitis without obstruction (5) Acute respiratory failure with hypoxia Acute J96.01 - ACUTE RESPIRATORY FAILURE WITH HYPOXIA Comment/Plan: Placed patient on oxygen by NC 1.5l/min and weaning as tolerated. Monitor oxygen saturation levels and keep O2 sats greater than 92%. Right- sided pneumonia appears to be improving slowly. (6) COPD exacerbation Acute J44.1 - CHRONIC OBSTRUCTIVE PULMONARY DISEASE W (ACUTE) EXACERBATION Comment/Plan: COPD exacerbation Nebs of Duoneb q 6 hours scheduled and albuterol q 2 hours prn. Sputum culture is unrevealing but tolerating the IV ceftriaxone and IV azithromycin. IV methylprednisolone. Continuous oxygen support. Keep sats below 95% due to COPD. Case Care Discussed with: Patient, Nursing Staff, Resource Management Education/Counseling Given To: Patient Education/Counseling Given Regarding: Diagnosis, Treatment Total Time: 38 min Critical Care: No Code: 12416 (12+)
[2016-12-07] MEDS: NEBIVOLOL HCL 10 MG TAB PO SCH (09:08)
[2016-12-07] MEDS: ASPIRIN 325 MG TAB PO SCH (09:08)
[2016-12-07] MEDS: ROFLUMILAST 500 MCG TAB PO SCH (09:09)
[2016-12-07] MEDS: TOLTERODINE 4 MG LA CAP PO SCH (09:10)
[2016-12-07] MEDS: AMITRIPTYLINE 50 MG TAB PO SCH ×3 (09:10→21:26)
[2016-12-07] MEDS: POTASSIUM CHLORIDE 20 MEQ TAB PO SCH ×2 (09:12→11:41)
[2016-12-07] MEDS: MELOXICAM 7.5 MG TAB PO SCH ×2 (09:13→21:26)
[2016-12-07] MEDS: TRAMADOL HCL 50 MG TAB PO PRN ×2 (09:21→16:58)
[2016-12-07] MEDS: PROBIOTIC BLEND TAB PO SCH ×2 (11:42→16:59)
[2016-12-07] MEDS: ENOXAPARIN 40 MG/0.4 ML PFS SQ SCH (17:00)
[2016-12-07] MEDS: FLUOXETINE 20 MG CAP PO SCH (21:26)
[2016-12-07] MEDS: CEFTRIAXONE 1 GM in D5W 100 ML IV SCH (21:27)
[2016-12-07] MEDS: MIRTAZAPINE 15 MG TAB PO SCH (21:27)
[2016-12-07] MEDS: LOPERAMIDE 2 MG CAP PO PRN (22:35)
[2016-12-07] MEDS: AZITHROMYCIN 500 MG in D5W 250 ML IV SCH (22:35)
[2016-12-07] MEDS: TEMAZEPAM 15 MG CAP PO PRN (22:35)
[2016-12-08] MEDS: Albuterol/Ipratropium Neb 3 ML NEB NEB SCH ×4 (01:19→19:06)
[2016-12-08] MEDS: METHYLPREDNISOLONE 40 MG/1 ML VIAL IV SCH ×2 (02:01→14:04)
[2016-12-08] MEDS: NS 1,000 ML IV SCH ×4 (03:14→22:37)
[2016-12-08] MEDS: ACETAMINOPHEN 325 MG/TAB TABLET PO SCH ×3 (05:32→20:07)
[2016-12-08] MEDS: ALPRAZOLAM 0.5 MG TAB PO SCH ×3 (05:32→20:07)
[2016-12-08] MEDS: GABAPENTIN 800 MG TAB PO SCH ×3 (05:32→16:57)
[2016-12-08] MEDS: MORPHINE 2 MG/ML INJECTION IV PRN ×3 (05:32→21:12)
[2016-12-08] MEDS: BACLOFEN 10 MG TAB PO SCH ×3 (05:33→20:08)
[2016-12-08] MEDS: LEVOTHYROXINE 100 MCG (0.1 MG) TAB PO SCH (05:33)
[2016-12-08 06:42] VITALS: BMI 22.8
[2016-12-08 08:05] LABS: MPV 8.9 fL (7.4-10.4)
[2016-12-08] MEDS: ASPIRIN 325 MG TAB PO SCH (08:05)
[2016-12-08] MEDS: ROFLUMILAST 500 MCG TAB PO SCH (08:05)
[2016-12-08] MEDS: TOLTERODINE 4 MG LA CAP PO SCH (08:05)
[2016-12-08] MEDS: FENTANYL 75 MCG PATCH TOP SCH (08:05)
[2016-12-08] MEDS: PROBIOTIC BLEND TAB PO SCH ×2 (08:05→16:57)
[2016-12-08] MEDS: MELOXICAM 7.5 MG TAB PO SCH ×2 (08:05→20:07)
[2016-12-08] MEDS: TRAMADOL HCL 50 MG TAB PO PRN ×2 (08:06→20:08)
[2016-12-08] MEDS: NEBIVOLOL HCL 10 MG TAB PO SCH (08:06)
[2016-12-08 08:23] LABS: BLOOD UREA NITROGEN 9 MG/DL (7-17); CALCIUM 8.9 MG/DL (8.4-10.2); CALCULATED OSMOLALITY 271 MOs/Kg (270-290); CHLORIDE 107 mEq/L (98-107); GLUCOSE 110 mg/dL (70-99); SODIUM LEVEL 141 mEq/L (137-146)
[2016-12-08] MEDS: LORAZEPAM 2 MG/ML VIAL IV PRN (09:13)
[2016-12-08] MEDS: LOPERAMIDE 2 MG CAP PO PRN (11:07)
--- NOTE | 2016-12-08 11:42 | DIRPT ---
CLINICAL DATA: Pneumonia EXAM: CHEST 2 VIEW COMPARISON: 12/05/2016 FINDINGS: Extensive infiltrate in the right lung shows mild progression. Interval development of small right effusion Left lung remains clear without infiltrate or effusion. Negative for heart failure. IMPRESSION: Progression of right lung infiltrate compatible with pneumonia. Interval interval development of small right effusion. Electronically Signed By: Ulisses Larios M.D. On: 12/08/2016 11:40
--- NOTE | 2016-12-08 14:26 | GENMEDPROG ---
Chief Complaint: sob better Notes Reviewed: Yes: Events from last night noted and discussed with Clinical Staff Current Medication List: Reviewed Currently: Reports: Cough, SOB, Sputum, Tobacco Use/Hx (quit 2003) DVT Prophylaxis: Yes - Physical Examination Vital Signs and I&O: Last Vital Signs Temp 97.9 F 12/08/16 12:18 Pulse 90 12/08/16 13:34 Resp 18 12/08/16 12:18 BP 158/84 12/08/16 12:18 Pulse Ox 95 12/08/16 12:18 Oxygen Pulse Oxygen Saturation 95 O2 Device Nasal Cannula Oxygen Flow Rate 2 Fraction of Inspired Oxygen ( 45 FIO2) Intake & Output 12/05/16 12/06/16 12/07/16 12/08/16 23:59 23:59 23:59 23:59 Intake Total 2905 2059 2484 4040 Output Total 1999 1999 3901 2200 Balance 905 59 1410 1840 Patient's weight 57.924 kg 58.241 kg 58.173 kg 62.369 kg General: Alert, Oriented x3, No acute distress, Well appearing, Well nourished HEENT: Normal (Normocephalic, atraumatic;EOMI.Sclera white, Nares patent, without discharge or bleeding. No oropharyngeal lesions or erythema. Mucous membranes are dry.) Neck: Non-tender, Full range of motion, Normal Trachea alignment, Normal inspection (No cervical lymphadenopathy. No supraclavicular lymphadenopathy.), No Masses palpable, Supple Lymphatics: Normal (no adenopathy) Respiratory: Diminished. negative: Rales, Rhonchi, Wheezes Cardiovascular: Regular rate and rhythm (No bradycardia or tachycardia), Normal S1, No Gallops,Rubs/Murmurs, Normal S2, Good Pedal Pulses (DP pulses 2+ bilaterally) GI: Normal bowel sounds (normal active sounds), Soft (non-distended), Non tender , No hepatospenomegaly, No masses Extremities/Musculoskeletal: Normal pulses (DP pulses 2+ bilaterally) Skin: Warm,Dry and Intact, No rashes, No significant lesion Neurological: Strength at 5/5 X4 ext (Motor 5/5 throughout.), Normal tone, Cranial nerves 3-12 NL ( 2-12 grossly intact.) Psych/Mental Status: Appropriate, Normal Affect Lab/DI/Studies Reviewed: 12/08/16 07:24 12/08/16 07:24 Laboratory Results - last 24 hr 12/08/16 12/08/16 07:24 07:24 WBC 5.2 RBC 3.35 L Hgb 11.2 L D Hct 32.9 L MCV 98 MCH 33.4 H MCHC 34.0 RDW 12.1 Plt Count 170 MPV 8.9 Sodium 141 Potassium 4.5 D Chloride 107 Carbon Dioxide 29 Anion Gap 10 BUN 9 Creatinine 0.60 Estimated GFR (MDRD) > 60 Glucose 110 H Calculated Osmolality 271 Calcium 8.9 - Assessment (1) Bacterial pneumonia Acute J15.9 - UNSPECIFIED BACTERIAL PNEUMONIA Comment/Plan: Requiring continuous oxygen support. Right-sided pneumonia noted on CT of chest and still quite hypoxic. Follow-up chest x-ray shows evolving right sided effusion (2) UTI (urinary tract infection) Acute N39.0 - URINARY TRACT INFECTION, SITE NOT SPECIFIED Qualifiers: Urinary tract infection type: acute cystitis Hematuria presence: without hematuria Qualified Code(s): N30.00 - Acute cystitis without hematuria Comment/Plan: Growing E coli in urine and is sensitive to Rocephin. (3) Cholelithiasis Acute K80.20 - CALCULUS OF GALLBLADDER W/O CHOLECYSTITIS W/O OBSTRUCTION Qualifiers: Cholelithiasis location: gallbladder Cholecystitis presence: without cholecystitis Biliary obstruction: without biliary obstruction Qualified Code(s): K80.20 - Calculus of gallbladder without cholecystitis without obstruction (4) Acute respiratory failure with hypoxia Acute J96.01 - ACUTE RESPIRATORY FAILURE WITH HYPOXIA Comment/Plan: Placed patient on oxygen by NC 1.5l/min and weaning as tolerated. Monitor oxygen saturation levels and keep O2 sats greater than 92%. Right- sided pneumonia appears to be improving slowly. (5) COPD exacerbation Acute J44.1 - CHRONIC OBSTRUCTIVE PULMONARY DISEASE W (ACUTE) EXACERBATION Comment/Plan: COPD exacerbation Nebs of Duoneb q 6 hours scheduled and albuterol q 2 hours prn. Sputum culture is unrevealing but tolerating the IV ceftriaxone and IV azithromycin. IV methylprednisolone. Continuous oxygen support. Keep sats below 95% due to COPD. (6) Chest pain Acute R07.9 - CHEST PAIN, UNSPECIFIED Qualifiers: Chest pain type: pleurodynia Qualified Code(s): R07.81 - Pleurodynia Comment/Plan: Right sided. Pleuritic pain due to pneumonia on telemetry. Case Care Discussed with: Patient, Nursing Staff Education/Counseling Given To: Patient Education/Counseling Given Regarding: Diagnosis, Treatment Total Time: 38 min Critical Care: No Code: 21077 (12+)
[2016-12-08] MEDS: ENOXAPARIN 40 MG/0.4 ML PFS SQ SCH (16:57)
[2016-12-08] MEDS: FLUOXETINE 20 MG CAP PO SCH (20:07)
[2016-12-08] MEDS: MIRTAZAPINE 15 MG TAB PO SCH (20:07)
[2016-12-08] MEDS: AMITRIPTYLINE 50 MG TAB PO SCH (21:12)
[2016-12-08] MEDS: CEFTRIAXONE 1 GM in D5W 100 ML IV SCH (22:34)
[2016-12-09] MEDS: TEMAZEPAM 15 MG CAP PO PRN (00:01)
[2016-12-09] MEDS: AZITHROMYCIN 500 MG in D5W 250 ML IV SCH (00:01)
[2016-12-09] MEDS: GABAPENTIN 800 MG TAB PO SCH ×3 (00:01→11:10)
[2016-12-09] MEDS: Albuterol/Ipratropium Neb 3 ML NEB NEB SCH ×2 (01:08→08:55)
[2016-12-09] MEDS: NS 1,000 ML IV SCH (02:03)
[2016-12-09] MEDS: METHYLPREDNISOLONE 40 MG/1 ML VIAL IV SCH (02:07)
[2016-12-09] MEDS: BACLOFEN 10 MG TAB PO SCH (04:00)
[2016-12-09] MEDS: ACETAMINOPHEN 325 MG/TAB TABLET PO SCH (04:00)
[2016-12-09] MEDS: LEVOTHYROXINE 100 MCG (0.1 MG) TAB PO SCH (04:03)
[2016-12-09] MEDS: ALPRAZOLAM 0.5 MG TAB PO SCH (04:04)
[2016-12-09] MEDS: TRAMADOL HCL 50 MG TAB PO PRN (04:04)
[2016-12-09 04:20] LABS: MPV 9.2 fL (7.4-10.4)
[2016-12-09 04:30] LABS: BLOOD UREA NITROGEN 10 MG/DL (7-17); CALCIUM 8.5 MG/DL (8.4-10.2); CALCULATED OSMOLALITY 268 MOs/Kg (270-290); CHLORIDE 104 mEq/L (98-107); GLUCOSE 98 mg/dL (70-99); SODIUM LEVEL 140 mEq/L (137-146)
--- NOTE | 2016-12-09 08:01 | PCM.DCS92 ---
- Final/Secondary Discharge Diagnosis (1) Bacterial pneumonia Acute J15.9 - UNSPECIFIED BACTERIAL PNEUMONIA Present on Admission: Yes Comment: Requiring continuous oxygen support. Right-sided pneumonia noted on CT of chest and still quite hypoxic. Follow-up chest x-ray shows evolving right sided effusion (2) UTI (urinary tract infection) Acute N39.0 - URINARY TRACT INFECTION, SITE NOT SPECIFIED Present on Admission: Yes acute cystitis without hematuria N30.00 - Acute cystitis without hematuria Comment: Growing E coli in urine and is sensitive to Rocephin. (3) Cholelithiasis Acute K80.20 - CALCULUS OF GALLBLADDER W/O CHOLECYSTITIS W/O OBSTRUCTION Present on Admission: Yes gallbladder without cholecystitis without biliary obstruction K80.20 - Calculus of gallbladder without cholecystitis without obstruction (4) Acute respiratory failure with hypoxia Acute J96.01 - ACUTE RESPIRATORY FAILURE WITH HYPOXIA Present on Admission: Yes Comment: Placed patient on oxygen by NC 1.5l/min and weaning as tolerated. Monitor oxygen saturation levels and keep O2 sats greater than 92%. Right- sided pneumonia appears to be improving slowly. (5) COPD exacerbation Acute J44.1 - CHRONIC OBSTRUCTIVE PULMONARY DISEASE W (ACUTE) EXACERBATION Present on Admission: Yes Comment: COPD exacerbation Nebs of Duoneb q 6 hours scheduled and albuterol q 2 hours prn. Sputum culture is unrevealing but tolerating the IV ceftriaxone and IV azithromycin. IV methylprednisolone. Continuous oxygen support. Keep sats below 95% due to COPD. (6) Chest pain Acute R07.9 - CHEST PAIN, UNSPECIFIED Present on Admission: Yes pleurodynia R07.81 - Pleurodynia Comment: Right sided. Pleuritic pain due to pneumonia on telemetry. Discharge Disposition: Discharge w/ Home Health Discharge Condition: Improved Cognitive Discharge Status: Unimpaired Fuctional Discharge Status: Independent Physician Follow up/Referrals: Erika Malik MD [Primary Care Provider] - 12/17/16 7:30 am Home Medications / New Prescriptions: New Benzonatate [Tessalon] 100 mg PO TID PRN #30 capsule PRN Reason: Cough - First Option Probiotic Blend [Rosalia Q] 1 tab PO BIDLS #30 tablet Tramadol HCl [Ultram] 50 mg PO Q8H PRN #30 tablet PRN Reason: Moderate To Severe Pain Cephalexin Monohydrate [Keflex] 500 mg PO Q8H #15 cap Continue Roflumilast [Daliresp] 500 mcg PO DAILY Gabapentin 800 mg PO Q6H Aspirin 325 mg PO DAILY Meloxicam [Mobic] 7.5 mg PO BID Baclofen 20 mg PO Q8H Levothyroxine [Synthroid, Levoxyl] 100 mcg PO DAILY Amitriptyline HCl 50 mg PO DAILY Solifenacin Succinate [Vesicare] 2.5 mg PO DAILY Nebivolol HCl [Bystolic] 2.5 mg PO DAILY Fluoxetine HCl [Prozac] 20 mg PO QHS Fluorometholone [Fml Forte] 1 drop OU BID Mirtazapine [Remeron] 45 mg PO HS Fentanyl [Duragesic 75 mcg/hr patch] 75 mcg TOP Q48H Alprazolam [Xanax] 0.5 mg PO TID Prednisone [Sterapred Ds] 10 mg PO DIR #1 box Discontinued Trimethoprim 100 mg PO HS Doxycycline Hyclate [Morgidox] 100 mg PO .BID X 7D No Action Acetaminophen [Tylenol] 650 mg PO TID Discharge Home Medication List Acetaminophen [Tylenol] 650 mg PO TID 12/03/16 [History Confirmed 12/03/16 Last Taken 12/03/16 11:00] Alprazolam [Xanax] 0.5 mg PO TID 12/03/16 [History Confirmed 12/03/16 Last Taken 12/03/16 12:00] Amitriptyline HCl 50 mg PO DAILY 12/03/16 [History Confirmed 12/03/16 Last Taken 12/02/16 21:00] Aspirin 325 mg PO DAILY 12/03/16 [History Confirmed 12/03/16 Last Taken 09:00] Baclofen 20 mg PO Q8H 12/03/16 [History Confirmed 12/03/16 Last Taken 12/03/16 13:00] Fentanyl [Duragesic 75 mcg/hr patch] 75 mcg TOP Q48H 12/03/16 [History Confirmed 12/03/16 Last Taken 12/02/16 09:00] Fluorometholone [Fml Forte] 1 drop OU BID 12/03/16 [History Confirmed 12/03/16 Last Taken 12/02/16] Fluoxetine HCl [Prozac] 20 mg PO QHS 12/03/16 [History Confirmed 12/03/16 Last Taken 12/02/16 21:00] Gabapentin 800 mg PO Q6H 12/03/16 [History Confirmed 12/03/16 Last Taken 12:00] Levothyroxine [Synthroid, Levoxyl] 100 mcg PO DAILY 12/03/16 [History Confirmed 12/03/16 Last Taken 12/03/16 06:00] Meloxicam [Mobic] 7.5 mg PO BID 12/03/16 [History Confirmed 12/03/16 Last Taken 12/03/16 09:00] Mirtazapine [Remeron] 45 mg PO HS 12/03/16 [History Confirmed 12/03/16 Last Taken 12/02/16 21:00] Nebivolol HCl [Bystolic] 2.5 mg PO DAILY 12/03/16 [History Confirmed 12/03/16 Last Taken 12/03/16 09:00] Roflumilast [Daliresp] 500 mcg PO DAILY 12/03/16 [History Confirmed 12/03/16 Last Taken 12/03/16 09:00] Solifenacin Succinate [Vesicare] 2.5 mg PO DAILY 12/03/16 [History Confirmed Last Taken 12/03/16 09:00] Benzonatate [Tessalon] 100 mg PO TID PRN #30 capsule 12/09/16 [Rx Last Taken Unknown] Cephalexin Monohydrate [Keflex] 500 mg PO Q8H #15 cap 12/09/16 [Rx Last Taken Unknown] Prednisone [Sterapred Ds] 10 mg PO DIR #1 box 12/09/16 [Rx Last Taken Unknown ] Probiotic Blend [Rosalia Q] 1 tab PO BIDLS #30 tablet 12/09/16 [Rx Last Taken Unknown] Tramadol HCl [Ultram] 50 mg PO Q8H PRN #30 tablet 12/09/16 [Rx Last Taken Unknown] 12/09/16 03:50 12/09/16 03:50 Laboratory Results - last 24 hr 12/08/16 12/09/16 12/09/16 07:24 03:50 03:50 WBC 5.9 RBC 3.35 L Hgb 11.4 L Hct 33.6 L MCV 100 H MCH 34.0 H MCHC 33.9 RDW 12.0 Plt Count 186 MPV 9.2 Sodium 141 140 Potassium 4.5 D 3.4 L Chloride 107 104 Carbon Dioxide 29 27 Anion Gap 10 12 BUN 9 10 Creatinine 0.60 0.60 Estimated GFR (MDRD) > 60 > 60 Glucose 110 H 98 Calculated Osmolality 271 268 L Calcium 8.9 8.5 Microbiology 12/03/16 17:31 Blood Blood Culture - Final No growth aerobically or anaerobically at 120 hours. NORMAL VALUE = No growth 12/03/16 16:24 Blood Blood Culture - Final No growth aerobically or anaerobically at 120 hours. NORMAL VALUE = No growth 12/03/16 16:50 Urine - Clean Catch - Midstream Urine Culture - Final Escherichia coli 12/03/16 22:05 N/P - Naso/Pharyngeal Influenza Type A Antigen Screen - Final NEGATIVE Please note: A NEGATIVE result does not exclude an influenza virus infection. It is a presumptive result and, if required, confirmation should be done using either a virus culture or an FDA-cleared influenza A&B molecular assay. ("NORMAL" value = "NEGATIVE".) 12/03/16 22:05 N/P - Naso/Pharyngeal Influenza Type B Antigen Screen - Final NEGATIVE Please note: A NEGATIVE result does not exclude an influenza virus infection. It is a presumptive result and, if required, confirmation should be done using either a virus culture or an FDA-cleared influenza A&B molecular assay. ("NORMAL" value = "NEGATIVE".) O2 Device: Nasal Cannula Oxygen Flow Rate: 2 Oxygen to be used after Discharge: Continuous Diet at Discharge: As Tolerated Activity: As Tolerated - DC Summary Notes HPI/Notes: The patient is a 61 yo woman who presents with acute shortness of breath and right sided chest pain. It started this morning with shortness of breath and the chest pain. She went to her doctor's office and was evaluated, then sent to have a chest x-ray. Chest x-ray done as an outpatient at [facility] showed a right sided pneumonia, so patient presented to the emergency department. Onset: this morning. Duration: constant. Location: chest pain is on right side of chest. Radiation: to back on right side of thorax. Character: 10/10 at times. As if someone is pressing on her chest. Alleviated by : Nothing. Exacerbated by: taking a deep breath and exertion. Associated Symptoms: Coughing that is non-productive. Not sure if she had wheezing. Shortness of breath, worsening. Chest pain but no palpitations. Fever at home. Not sure if she had chills. Diaphoresis today. Severe fatigue. Headache that is all over her head (reports she gets headaches when she has a respiratory infection). Does not feel well. Nausea. Has chronic back pain but pain is currently worse; is in right thorax and lower spine. Treatments: none at home except usual medications. Hospital Course Note:: Discharge summary on patient named FERNANDO LOCO admitted to [facility] on 12/03/16 by Lawrence Lewis MD. Date of discharge is 2016. She is admitted with right-sided pneumonia significant bronchospasm urinary tract infection growing E coli sensitive to the Rocephin she was given for the pneumonia. CT of the sinuses showed a right nasal septal deviation but no evidence sinusitis. She was ready for discharge today reaching maximal medical improvement. Antibiotics given and follow up with Dr. Malik within the next 2 weeks would be prudent. For her hypoxia she was given supplemental O2 at a rate of 2 liters/minute. Re-evaluation of her supplemental O2 need will be determined by Dr. Malik. CC: Dr. Erika Jackson Total Time: 40 min Code: 11510 (>30min.) - Physical Exam Vital Signs: Last Vital Signs Temp 98.3 F 12/09/16 04:15 Pulse 101 12/09/16 06:20 Resp 22 12/09/16 04:15 BP 164/93 12/09/16 04:15 Pulse Ox 99 12/09/16 06:17 Oxygen Pulse Oxygen Saturation 99 O2 Device Nasal Cannula Oxygen Flow Rate 2.5 Fraction of Inspired Oxygen ( 45 FIO2) Constitutional: Alert (Awake), Other (dyspneic) Oriented to: Time, Person, Place - HEENT Head: Normal ( normocephalic) Eye: Normal (PERRL, EOMI, Sclera white) Oropharynx: Normal (Pharynx: Moist without exudate,Gums-no swelling, No oropharyngeal lesions or erythema, Mucous membranes are dry.) ENT EAC: Normal TMJ: Normal Nose: No Symptoms Reported (Nares patent, without discharge or bleeding.) - Respiratory/Cardiovascular Respiratory: Diminished. negative: Rales, Rhonchi, Wheezes Cardiovascular: Normal (RRR , Normal S1, S2. No murmurs, rubs, or gallops. PMI non-displaced. Carotids: no carotid bruits. No bradycardia or tachycardia. DP pulses 2+ bilaterally.) - GI Auscultation: Normal (NABS) Palpation: Normal (Soft,No rebound or guarding, non distended) Tenderness: Non tender Moore's Sign: Negative - Musculoskeletal Back: Other Extremities: Normal (Normal tone, Pulses 2+ No cyanosis or edema, FROM) - Integumentary Skin: Normal (Warm dry no rashes) Lymphatics: Normal (no adenopathy) - Neurologic Memory Impaired: Normal Motor Function: Normal (Motor 5/5 throughout.Normal tone, Pulses 2+ No cyanosis or edema, FROM) Cranial Nerve: Normal (CN II-XII intact sensation, strength 5/5) Cerebellar: Normal Mood Description: Normal Thought: Coherent Perception: Normal
[2016-12-09 08:12] VITALS: BP 164/97; TEMP 97.7
[2016-12-09] MEDS: ASPIRIN 325 MG TAB PO SCH (08:40)
[2016-12-09] MEDS: NEBIVOLOL HCL 10 MG TAB PO SCH (08:41)
[2016-12-09] MEDS: MELOXICAM 7.5 MG TAB PO SCH (08:42)
[2016-12-09] MEDS: ROFLUMILAST 500 MCG TAB PO SCH (08:42)
[2016-12-09] MEDS: LORAZEPAM 2 MG/ML VIAL IV PRN (08:42)
[2016-12-09] MEDS: TOLTERODINE 4 MG LA CAP PO SCH (08:42)
[2016-12-09] MEDS: LOPERAMIDE 2 MG CAP PO PRN (11:10)
[2016-12-09] MEDS: PROBIOTIC BLEND TAB PO SCH (11:11)
[2016-12-09 11:18] VITALS: PULSE 90
[2016-12-09 16:38] LABS: A-1-ANTITRYPSIN 160 mg/dL (90-200)
== END 2016-12-09 12:15 | disposition home health service (06) | DRG 177 ==
LOC: ED 15:46 → PCU 18:26
PROVIDERS: ADMIT Internal Medicine; ATTEND Internal Medicine
PROC: 4A033R1 Measurement of Arterial Saturation, Peripheral, Percutaneous Approach (ICD-10-PCS; principal; 2016-12-03)
DX: J15.5 Pneumonia due to Escherichia coli (principal); J96.21 Acute and chronic respiratory failure with hypoxia; N30.00 Acute cystitis without hematuria; J44.1 Chronic obstructive pulmonary disease with (acute) exacerbation; E87.1 Hypo-osmolality and hyponatremia; Z23 Encounter for immunization; K80.20 Calculus of gallbladder without cholecystitis without obstruction; I10 Essential (primary) hypertension; M19.90 Unspecified osteoarthritis, unspecified site; E61.2 Magnesium deficiency; E87.6 Hypokalemia; Z87.440 Personal history of urinary (tract) infections; Z88.5 Allergy status to narcotic agent; Z79.82 Long term (current) use of aspirin; Z79.52 Long term (current) use of systemic steroids; Z87.891 Personal history of nicotine dependence
CPT/HCPCS: 36415; 36600; 71010; 71020; 71275; 76380; 80048; 80307; 81001; 82104; 82803; 83605; 83735; 84295; 85025; 85027; 85379; 85610; 87040; 87077; 87086; 87186; 87804; 90471; 90732; 93005; 94640; 94664; 96361; 96365; 96372; 96375; 96376; 97161; 98960; 99284; A9698; G0237; J0456; J0696; J1650; J1956; J2060; J2270; J2405; J2550; J2920; J2930; J3010; J3475; J3490; J7060; J7070; J7620